=== PATIENT | female | born 1940 | race Caucasian/White ===

== ENCOUNTER 2017-04-17 15:04 | Outpatient (CLI) | payer MEDICARE, OTHER ==
--- NOTE | 2017-04-18 11:02 | XRAY Report ---
THREE VIEW RIGHT FOOT: 04/17/2017 CLINICAL INDICATION: Injury, pain. FINDINGS: AP, lateral, oblique views of the right foot demonstrate mild osteoarthritis. There is no evidence of acute fracture or dislocation. Plantar and posterior calcaneal spurring is present. IMPRESSION: OSTEOARTHRITIS. NO EVIDENCE OF FRACTURE. TD: 04/18/2017 11:01
== END 2017-04-17 15:05 | disposition home or self-care (01) ==
LOC: DI 15:04
PROVIDERS: ATTEND Podiatrist
DX: S99.921A Unspecified injury of right foot, initial encounter (principal); M19.071 Primary osteoarthritis, right ankle and foot

== ENCOUNTER 2018-03-29 09:15 | Emergency (ER) | payer MEDICARE, OTHER ==
--- NOTE | 2018-03-29 09:27 | ED Physician Documentation ---
PD HPI SYNCOPE - Stated complaint Stated Complaint: SYNCOPE/GLF - Chief complaint Chief Complaint: Trauma Hd/Nk - History obtained from History obtained from: Patient - History of Present Illness Witnessed: Unwitnessed Timing - onset: Last night Duration: Seconds Preceding symptoms: Light headed, Generalized weakness (she has been ill for couple weeks with cough and congestion, Dx with pneumonia and was on Zpack for 5 days with mod improvement, then seen again PMD several days ago and Rx Keflex. She says she is still having cough and tightness. Went to bathroom last night and felt lighheaded getting up off the toilet, felt faint, then awoke on the floor. Presumes short duration but does not know for sure. Got herself back up. Still feeling weak today, and has increased cough too.). No: Headache, Chest pain Associated symptoms: Dyspnea (with cough the past 2 weeks). No: Headache, Chest pain, Nausea / vomiting, Abdominal pain Contributing factors: Just stood up. No: Recent med change, Noxious stimulae Similar symptoms before: Has not had sx before Recently seen: Not recently seen Review of Systems Constitutional: denies: Fever, Chills, Myalgias Nose: denies: Rhinorrhea / runny nose, Congestion Throat: denies: Sore throat Cardiac: reports: Chest pain / pressure (anteriorly with cough). denies: Palpitations Respiratory: reports: Dyspnea, Cough, Wheezing GI: denies: Nausea, Vomiting, Diarrhea, Bloody / black stool Skin: denies: Rash, Lesions Musculoskeletal: denies: Extremity swelling Neurologic: reports: Generalized weakness, Syncope, Headache. denies: Focal wea kness, Numbness, Head injury PD PAST MEDICAL HISTORY - Present Medications Home Medications: Ambulatory Orders Medication Instructions Recorded Confirmed Albuterol Sulf [Ventolin Hfa 2 puffs INH Q4HR PRN #1 inhaler 03/29/18 Inhaler] Benzonatate [Tessalon Perle] 100 - 200 mg PO TID PRN #30 capsule 03/29/18 Cephalexin [Keflex] 500 mg PO DAILY 03/29/18 03/29/18 Dexamethasone [Decadron] 4 mg PO DAILY #5 tablet 03/29/18 Dextromethorphan Polistirex 30 mg PO DAILY 03/29/18 03/29/18 [Delsym] Losartan [Cozaar] 50 mg PO DAILY 03/29/18 03/29/18 amLODIPine [Norvasc] 5 mg PO DAILY 03/29/18 03/29/18 - Allergies Allergies/Adverse Reactions: Allergies Allergy/AdvReac Type Severity Reaction Status Date / Time codeine Allergy Hallucinati Verified 03/29/18 09:25 ons morphine Allergy Hallucinati Verified 03/29/18 09:25 ons PD ED PE NORMAL - Vitals Vital signs reviewed: Yes - General General: Alert and oriented X 3, No acute distress, Well developed/nourished - HEENT HEENT: Ears normal, Pharynx benign - Neck Neck: Supple, no meningeal sign, No adenopathy - Cardiac Cardiac: RRR, No murmur - Respiratory Respiratory: Clear bilaterally - Abdomen Abdomen: Soft, Non tender - Back Back: No CVA TTP, No spinal TTP - Derm Derm: Normal color, Warm and dry - Extremities Extremities: No deformity, No edema, No calf tenderness / cord - Neuro Neuro: Alert and oriented X 3, No motor deficit, Normal speech Eye Opening: Spontaneous Motor: Obeys Commands Verbal: Oriented GCS Score: 15 Results - Vitals Vitals: Vital Signs - 24 hr 03/29/18 03/29/18 03/29/18 09:22 10:57 11:12 Temperature 36.9 C Heart Rate 76 58 L Heart Rate [ 64 Sitting] Heart Rate [ 67 Standing] Heart Rate [ 62 Supine] Respiratory 18 16 Rate Blood Pressure 138/92 H Blood Pressure 137/64 H [Sitting] Blood Pressure 147/56 H [Standing] Blood Pressure 138/63 H [Supine] O2 Saturation 93 03/29/18 03/29/18 12:14 13:00 Temperature 36.8 C 36.8 C Heart Rate 70 66 Heart Rate [ Sitting] Heart Rate [ Standing] Heart Rate [ Supine] Respiratory 16 16 Rate Blood Pressure 123/58 L 117/57 L Blood Pressure [Sitting] Blood Pressure [Standing] Blood Pressure [Supine] O2 Saturation 94 95 Oxygen O2 Source Room air - EKG (time done) 09:38 Rate: Rate (enter#) (63) Rhythm: NSR [employer]: Normal Intervals: Normal MT QRS: Normal Ischemia: Normal ST segments. No: ST elevation c/w ischemia, ST depression - Labs Labs: Laboratory Tests 03/29/18 03/29/18 03/29/18 10:40 10:40 10:40 WBC 4.7 L RBC 4.10 L Hgb 12.4 Hct 36.6 L MCV 89.3 MCH 30.3 MCHC 33.9 RDW 14.8 Plt Count 205 MPV 9.3 Neut # (Auto) 3.8 Lymph # (Auto) 0.5 L [place] # (Auto) 0.4 Eos # (Auto) 0.1 Baso # (Auto) 0.0 Absolute Nucleated RBC 0.00 Nucleated RBC % 0.0 Sodium Potassium Chloride Carbon Dioxide Anion Gap BUN Creatinine Estimated GFR (MDRD) Glucose Lactic Acid 0.8 Calcium Magnesium Total Bilirubin AST ALT Alkaline Phosphatase Troponin I < 0.04 Total Protein Albumin Globulin Albumin/Globulin Ratio Lipase 03/29/18 10:40 WBC RBC Hgb Hct MCV MCH MCHC RDW Plt Count MPV Neut # (Auto) Lymph # (Auto) [place] # (Auto) Eos # (Auto) Baso # (Auto) Absolute Nucleated RBC Nucleated RBC % Sodium 133 L Potassium 3.7 Chloride 99 L Carbon Dioxide 26 Anion Gap 8.0 BUN 12 Creatinine 0.7 Estimated GFR (MDRD) 81 L Glucose 106 H Lactic Acid Calcium 8.7 Magnesium 2.5 Total Bilirubin 0.4 AST 26 ALT 22 Alkaline Phosphatase 59 Troponin I Total Protein 7.9 Albumin 3.9 Globulin 4.0 Albumin/Globulin Ratio 1.0 Lipase 22 - Rads (name of study) chest xray Radiology: Prelim report reviewed (no acute findings.), EMP read contemporaneously, See rad report Departure - Departure Disposition: 01 Home, Self Care Clinical Impression: Bronchitis, Postural syncope Condition: Stable Record reviewed to determine appropriate education?: Yes Instructions: ED Syncope Vasovagal Follow-Up: Moises Jacobs MD [Primary Care Provider] - Prescriptions: Albuterol Sulf [Ventolin Hfa Inhaler] 2 puffs INH Q4HR PRN #1 inhaler PRN Reason: Shortness Of Air/Wheezing Benzonatate [Tessalon Perle] 100 - 200 mg PO TID PRN #30 capsule PRN Reason: Cough Dexamethasone [Decadron] 4 mg PO DAILY #5 tablet Comments: Continue your current medications. Stay well-hydrated. Add albuterol inhaler 2 puffs 4 times a day for the next week or so to try to help with decreasing cough and improving breathing. Decadron steroid anti-inflammatory to decrease bronchial irritation and this should decrease the cough as well. Tessalon if needed for cough. Your chest x-ray was clear without any pneumonia. Your blood tests are good. Your fainting episode last night sounds like it was just a transient drop in blood pressure. Your blood pressure seems good here. Discharge Date/Time: 03/29/18 13:00
[2018-03-29] MEDS ORDERED: SODIUM CHLORIDE 0.9% 1,000 ML IV ONE (09:58)
[2018-03-29] MEDS ORDERED: ONDANSETRON 4 MG/2 ML VIAL IVP STA (09:58)
[2018-03-29] MEDS ORDERED: DEXAMETHASONE 10 MG/ML VIAL IVP STA (09:59)
[2018-03-29] MEDS ORDERED: KETOROLAC 15 MG/ML VIAL IVP STA (09:59)
[2018-03-29] MEDS ORDERED: ALBUTEROL NEB 2.5 MG/3 ML INH STA (09:59)
--- NOTE | 2018-03-29 10:28 | XRAY Report ---
Reason: cough and weakness Procedure Date: 03/29/2018 Accession Number: [id number] / [id number] Procedure: XR - Chest 2 View X-Ray CPT Code: 53160 FULL RESULT: EXAM: CHEST RADIOGRAPHY EXAM DATE: 03/29/2018 10:11 AM. CLINICAL HISTORY: Cough and weakness. Syncope and ground-level fall this morning. COMPARISON: None. TECHNIQUE: 2 views. FINDINGS: Lungs/Pleura: No focal opacities evident. No pleural effusion. No pneumothorax. Normal volumes. Mediastinum: Heart and mediastinal contours are unremarkable. Other: No acute osseous abnormality. IMPRESSION: No acute cardiopulmonary abnormality. RADIA
[2018-03-29 11:35] LABS: BASOPHILS % (AUTO) 0.5 %; EOSINOPHILS # (AUTO) 0.1 10^3/uL (0.0-0.7); EOSINOPHILS % (AUTO) 1.5 %; HGB - HEMOGLOBIN 12.4 g/dL (12.0-16.0); LYMPHOCYTES # (AUTO) 0.5 10^3/uL (1.5-3.5); LYMPHOCYTES % (AUTO) 9.8 %; MEAN CORPUSCULAR HEMOGLOBIN 30.3 pg (27.0-31.0); MEAN CORPUSCULAR HGB CONC 33.9 g/dL (32.0-36.0); MEAN CORPUSCULAR VOLUME 89.3 fL (81.0-99.0); MEAN PLATELET VOLUME 9.3 fL (7.9-10.8); MONOCYTES # (AUTO) 0.4 10^3/uL (0.0-1.0); MONOCYTES % (AUTO) 8.3 %; NEUTROPHILS # (AUTO) 3.8 10^3/uL (1.5-6.6); NEUTROPHILS % (AUTO) 79.9 %; PLT - PLATELET COUNT 205 10^3/uL (130-450); RED CELL DISTRIBUTION WIDTH 14.8 % (12.0-15.0); WHITE BLOOD COUNT 4.7 x10^3/uL (4.8-10.8)
[2018-03-29 11:43] LABS: ALBUMIN 3.9 g/dL (3.2-5.5); BILIRUBIN,TOTAL 0.4 mg/dL (0.2-1.0); CALCIUM 8.7 mg/dL (8.5-10.3); CREATININE 0.7 mg/dL (0.4-1.0); MAGNESIUM 2.5 mg/dL (1.7-2.8); TOTAL PROTEIN 7.9 g/dL (6.7-8.2)
[2018-03-29] MEDS ORDERED: ACETAMINOPHEN 500 MG TABLET PO STA (12:16)
[2018-03-29 13:02] VITALS: BP 117/57
== END 2018-03-29 13:00 | disposition home or self-care (01) ==
LOC: ED 09:15
DX: J40 Bronchitis, not specified as acute or chronic (principal); R55 Syncope and collapse
CPT/HCPCS: 36415; 71046; 80053; 83605; 83690; 83735; 84484; 85025; 93005; 94640; 96361; 96374; 96375; 99284; A9270

== ENCOUNTER 2018-04-22 10:09 | Outpatient (CLI) | payer MEDICARE, OTHER ==
--- NOTE | 2018-04-22 13:15 | XRAY Report ---
Reason: PAIN IN LEFT SHOULDER Procedure Date: 04/22/2018 Accession Number: [id number] / [id number] Procedure: XR - Shoulder 3 View LT CPT Code: FULL RESULT: EXAM: LEFT SHOULDER RADIOGRAPHY EXAM DATE: 04/22/2018 10:12 AM. CLINICAL HISTORY: PAIN IN LEFT SHOULDER. COMPARISON: None. TECHNIQUE: 3 views. FINDINGS: Bones: Normal. No fracture or bone lesion. Joints: The glenohumeral and acromioclavicular joints are normally located with mild AC joint degenerative changes. Soft tissues: There is a well rounded 1.2 cm calcific density posterior to the scapula seen on the Y-view and posterior to the proximal humeral diaphysis on the AP view. Possibly heterotopic calcifications, overall a nonspecific finding. IMPRESSION: No fracture or dislocation. Well-rounded calcific density projecting over the soft tissues as described, possibly heterotopic calcifications. RADIA
== END 2018-04-22 10:10 | disposition home or self-care (01) ==
LOC: DI 10:09
PROVIDERS: ATTEND Family Medicine
DX: M25.512 Pain in left shoulder (principal)

== ENCOUNTER 2020-07-17 | Outpatient (CLI) | payer MEDICARE, OTHER | END 2020-07-17 03:00 | disposition critical access hospital (66) | CPT/HCPCS: A0425; A0429 ==

== ENCOUNTER 2020-07-17 03:24 | Observation (INO) | payer MEDICARE, OTHER ==
[2020-07-17] MEDS ORDERED: ONDANSETRON ODT 4 MG TABLET ONE (03:30)
--- NOTE | 2020-07-17 03:44 | ED Physician Documentation ---
PD HPI SYNCOPE - Stated complaint Stated Complaint: GLF - History obtained from History obtained from: Patient - History of Present Illness Witnessed: Unwitnessed Timing - onset: Enter time (0200) Duration: Unknown Preceding symptoms: Vision changes, Light headed, Generalized weakness Contributing factors: Decreased PO intake, Just stood up, Other (2nd dose of moderna today) Injury occurred: Fell, Head injury Similar symptoms before: Has not had sx before Recently seen: Other - Additional information Additional information: 80-year-old female who was well earlier in the day had her second Moderna shot at 10:00 in the morning. She was well during the day and well when she went to bed and she awoke in the night feeling warm and having to throw the covers off of her self and she got up to go to the bathroom when and went to the bathroom when she stood up from going to the bathroom she fainted and she fell and struck the back of her head. She does not know whether she was unconscious for any period of time she has some blood on the back of her head and the ambulance was summoned to her home the patient has some nausea and vomiting now. Review of Systems Constitutional: denies: Fever Eyes: denies: Decreased vision Ears: denies: Ear pain Nose: denies: Congestion Throat: denies: Sore throat Cardiac: denies: Chest pain / pressure, Palpitations Respiratory: denies: Dyspnea, Cough GI: reports: Nausea, Vomiting. denies: Abdominal Pain : denies: Dysuria, Frequency Skin: denies: Rash Musculoskeletal: reports: Neck pain. denies: Back pain, Extremity pain Neurologic: reports: Syncope, Headache, Head injury, LOC. denies: Generalized weakness, Focal weakness, Numbness, Seizure, Altered mental status PD PAST MEDICAL HISTORY - Past Medical History Cardiovascular: Hypertension, High cholesterol Respiratory: Pneumonia GI: Chronic constipation Psych: Anxiety - Past Surgical History General: Cholecystectomy /[employer]: Hysterectomy - Present Medications Home Medications: Ambulatory Orders Medication Instructions Recorded Confirmed Albuterol Sulf [Ventolin Hfa 2 puffs INH Q4HR PRN #1 inhaler 03/29/18 Inhaler] Benzonatate [Tessalon Perle] 100 - 200 mg PO TID PRN #30 capsule 03/29/18 Dextromethorphan Polistirex 30 mg PO DAILY 03/29/18 03/29/18 [Delsym] Losartan [Cozaar] 50 mg PO DAILY 03/29/18 03/29/18 amLODIPine [Norvasc] 5 mg PO DAILY 03/29/18 03/29/18 cephALEXin [Keflex] 500 mg PO DAILY 03/29/18 03/29/18 dexAMETHasone [Decadron] 4 mg PO DAILY #5 tablet 03/29/18 Meclizine HCl [Antivert] 1 tablet PO Q6H PRN #30 tab 07/17/20 Ondansetron Odt [Zofran] 4 mg TL Q6H PRN #10 tablet 07/17/20 - Allergies Allergies/Adverse Reactions: Allergies Allergy/AdvReac Type Severity Reaction Status Date / Time codeine Allergy Hallucinati Verified 07/17/20 03:56 ons morphine Allergy Hallucinati Verified 07/17/20 03:56 ons - Social History Does the pt smoke?: No Smoking Status: Never smoker Does the pt drink ETOH?: No Does the pt have substance abuse?: No PD ED PE NORMAL - Vitals Vital signs reviewed: Yes (Hypertensive with wide pulse pressure) - General General: Alert and oriented X 3, Well developed/nourished - HEENT HEENT: PERRL, EOMI, Other (There is a contusion to the occiput with bleeding and no laceration. There is a Wenn on the occiput inferior left. ) - Neck Neck: Supple, no meningeal sign, Other (mild midline tenderness ) - Cardiac Cardiac: RRR, No murmur - Respiratory Respiratory: No respiratory distress, Clear bilaterally - Abdomen Abdomen: Normal bowel sounds, Soft, Non tender, Non distended, No organomegaly - Back Back: No CVA TTP, No spinal TTP - Derm Derm: Normal color, Warm and dry, No rash - Extremities Extremities: No deformity, No edema - Neuro Neuro: Alert and oriented X 3, barrel raiser 2-12 intact, No motor deficit, No sensory deficit, Normal speech Eye Opening: Spontaneous Motor: Obeys Commands Verbal: Oriented GCS Score: 15 - Psych Psych: Normal mood, Normal affect Results - Vitals Vitals: Vital Signs - 24 hr 07/17/20 07/17/20 07/17/20 03:25 04:14 04:58 Temperature 36.2 C L 36.7 C Heart Rate 73 78 84 Respiratory 20 18 16 Rate Blood Pressure 141/64 H 138/72 H 146/67 H O2 Saturation 98 99 99 07/17/20 07/17/20 05:51 06:02 Temperature 36.8 C Heart Rate 86 85 Respiratory 15 14 Rate Blood Pressure 134/66 H 128/67 O2 Saturation 97 99 Oxygen O2 Source Room air - EKG (time done) 0340 Rate: Rate (enter#) (74) [place]: LAD Ischemia: Non specific changes Computer interpretation: Agree with computer - Labs Labs: Laboratory Tests 07/17/20 07/17/20 07/17/20 03:49 03:49 03:49 WBC 8.9 RBC 4.22 Hgb 12.5 Hct 38.4 MCV 91.0 MCH 29.6 MCHC 32.6 RDW 14.6 Plt Count 225 MPV 9.7 Neut # (Auto) 7.0 H Lymph # (Auto) 1.1 L [place] # (Auto) 0.5 Eos # (Auto) 0.1 Baso # (Auto) 0.0 Absolute Nucleated RBC 0.00 Nucleated RBC % 0.0 Sodium 132 L Potassium 3.6 Chloride 99 L Carbon Dioxide 24 Anion Gap 9.0 BUN 13 Creatinine 0.7 Estimated GFR (MDRD) 80 L Glucose 129 H Calcium 8.7 Total Bilirubin 0.4 AST 26 ALT 24 Alkaline Phosphatase 58 Troponin I High Sens 5.7 Total Protein 7.2 Albumin 4.1 Globulin 3.1 Albumin/Globulin Ratio 1.3 Lipase 28 Urine Color Urine Clarity Urine pH Ur Specific [place] Urine Protein Urine Glucose (UA) Urine Ketones Urine Occult Blood Urine Nitrite Urine Bilirubin Urine Urobilinogen Ur Leukocyte Esterase Urine RBC Urine WBC Ur Squamous Epith Cells Urine Bacteria Ur Microscopic Review Urine Culture Comments 07/17/20 05:45 WBC RBC Hgb Hct MCV MCH MCHC RDW Plt Count MPV Neut # (Auto) Lymph # (Auto) [place] # (Auto) Eos # (Auto) Baso # (Auto) Absolute Nucleated RBC Nucleated RBC % Sodium Potassium Chloride Carbon Dioxide Anion Gap BUN Creatinine Estimated GFR (MDRD) Glucose Calcium Total Bilirubin AST ALT Alkaline Phosphatase Troponin I High Sens Total Protein Albumin Globulin Albumin/Globulin Ratio Lipase Urine Color YELLOW Urine Clarity CLEAR Urine pH 8.0 H Ur Specific [place] 1.020 Urine Protein NEGATIVE Urine Glucose (UA) NEGATIVE Urine Ketones NEGATIVE Urine Occult Blood NEGATIVE Urine Nitrite NEGATIVE Urine Bilirubin NEGATIVE Urine Urobilinogen 0.2 (NORMAL) Ur Leukocyte Esterase TRACE H Urine RBC None Seen Urine WBC 6-10 H Ur Squamous Epith Cells NONE SEEN Urine Bacteria Rare Ur Microscopic Review INDICATED Urine Culture Comments INDICATED - Rads (name of study) CT head Radiology: Prelim report reviewed (Impression: 1. No CT evidence of acute intracranial abnormality. Cerebral volume loss, intracranial atherosclerotic disease and sequela of chronic small vessel ischemic disease.), EMP read indepedently, See rad report Cervical spine Radiology: Prelim report reviewed (Impression: 1. Negative CT cervical spine for acute process.) Procedures - IVC sono (time) 0420 Bedside IVC sono: IVC measures (cm) (0.87), Dehydration (est 2 liter deficit) PD MEDICAL DECISION MAKING - ED course Complexity details: reviewed results, re-evaluated patient, considered differential, d/w patient, d/w family ED course: 80-year-old female with a syncopal episode resulting in a head injury with resultant vomiting.The patient is found to be dehydrated and intravenous saline is begun she is given some Zofran for the nausea. CT images are without evidence of intracranial hemorrhage. The patient is dehydrated enough to require 2 L of nasal normal saline and she has some dizziness with nystagmus and is administered meclizine as well. Departure - Departure Clinical Impression: Postural syncope, Dehydration Concussion Qualifiers: Encounter type: initial encounter Loss of consciousness presence/duration: with LOC of 30 min or less Qualified Code(s): S06.0X1A - Concussion with loss of consciousness of 30 minutes or less, initial encounter Scalp contusion Qualifiers: Encounter type: initial encounter Qualified Code(s): S00.03XA - Contusion of scalp, initial encounter Condition: Stable Instructions: ED Dehydration, ED Head Injury Closed, ED Syncope Vasovagal, ED Vertigo Unspecified Follow-Up: Moises Jacobs MD [Primary Care Provider] - Prescriptions: Meclizine HCl [Antivert] 1 tablet PO Q6H PRN #30 tab PRN Reason: Vertigo Ondansetron Odt [Zofran] 4 mg TL Q6H PRN #10 tablet PRN Reason: Nausea / Vomiting
[2020-07-17 03:55] LABS: BASOPHILS % (AUTO) 0.5 %; EOSINOPHILS # (AUTO) 0.1 10^3/uL (0.0-0.7); EOSINOPHILS % (AUTO) 1.5 %; HCT - HEMATOCRIT 38.4 % (37.0-47.0); HGB - HEMOGLOBIN 12.5 g/dL (12.0-16.0); LYMPHOCYTES # (AUTO) 1.1 10^3/uL (1.5-3.5); LYMPHOCYTES % (AUTO) 12.9 %; MEAN CORPUSCULAR HEMOGLOBIN 29.6 pg (27.0-31.0); MEAN CORPUSCULAR HGB CONC 32.6 g/dL (32.0-36.0); MEAN PLATELET VOLUME 9.7 fL (7.9-10.8); MONOCYTES # (AUTO) 0.5 10^3/uL (0.0-1.0); MONOCYTES % (AUTO) 5.9 %; PLT - PLATELET COUNT 225 10^3/uL (130-450); RED BLOOD COUNT 4.22 10^6/uL (4.20-5.40); RED CELL DISTRIBUTION WIDTH 14.6 % (12.0-15.0); WHITE BLOOD COUNT 8.9 x10^3/uL (4.8-10.8)
[2020-07-17] MEDS ORDERED: ONDANSETRON ODT 4 MG TABLET TL STA (04:03)
[2020-07-17 04:06] LABS: ALBUMIN 4.1 g/dL (3.2-5.5); ALBUMIN/GLOBULIN RATIO 1.3 (1.0-2.2); BILIRUBIN,TOTAL 0.4 mg/dL (0.2-1.0); CALCIUM 8.7 mg/dL (8.5-10.3); CREATININE 0.7 mg/dL (0.4-1.0); POTASSIUM 3.6 mmol/L (3.5-5.0); TOTAL PROTEIN 7.2 g/dL (6.7-8.2)
[2020-07-17] MEDS ORDERED: ACETAMINOPHEN 325 MG TABLET PO STA (04:33)
[2020-07-17] MEDS ORDERED: SODIUM CHLORIDE 0.9% 1,000 ML IV STA ×3 (04:35→08:23)
[2020-07-17 05:54] LABS: BILIRUBIN,URINE NEGATIVE (NEGATIVE); CLARITY,URINE CLEAR (CLEAR); GLUCOSE, URINE (UA) NEGATIVE (NEGATIVE); KETONES,URINE (UA) NEGATIVE (NEGATIVE); LEUKOCYTE ESTERASE, URINE TRACE (NEGATIVE); NITRITE,URINE NEGATIVE (NEGATIVE); OCCULT BLOOD,URINE NEGATIVE (NEGATIVE); PROTEIN,URINE NEGATIVE (NEGATIVE); UROBILINOGEN,URINE 0.2 (NORMAL) E.U./dL (NORMAL)
[2020-07-17 06:01] LABS: BACTERIA,URINE Rare /HPF (None Seen); RBC,URINE None Seen /HPF (0-5); SQUAMOUS EPITHELIAL CELL,UR NONE SEEN (<= Few)
[2020-07-17] MEDS ORDERED: MECLIZINE 12.5 MG TABLET PO STA ×2 (06:06→09:29)
--- NOTE | 2020-07-17 07:10 | CT Report ---
PROCEDURE: HEAD WO INDICATIONS: polytrauma, critical TECHNIQUE: Noncontrast 4.5 mm thick angled axial sections acquired from the foramen magnum to the vertex. For r adiation dose reduction, the following was used: automated exposure control, adjustment of mA and/or kV according to patient size. COMPARISON: None FINDINGS: Image quality: Excellent. CSF spaces: Basal cisterns are patent. No extra-axial fluid collections. The ventricles are symmet prakash in size and shape. Brain: No intracranial bleeds or masses. There is cerebral volume loss for age, with resultant vent ricular and sulcal prominence. There are periventricular and deep white matter chronic small vessel ischemic changes. There is intracranial internal carotid artery and vertebral artery atherosclerosis . Skull and face: Calvarium and visualized facial bones appear intact, without suspicious lesions. Sinuses: Visualized sinuses and mastoids are clear. IMPRESSION: No acute intracranial disease process. Reviewed by: Pauline Lombardo MD, PhD on 07/17/2020 7:09 AM PDT Approved by: Pauline Lombardo MD, PhD on 07/17/2020 7:09 AM PDT Station ID: [id number]
--- NOTE | 2020-07-17 08:16 | CT Report ---
PROCEDURE: CERVICAL SPINE WO INDICATIONS: head injury neck pain TECHNIQUE: Noncontrast 3 mm thick sections acquired from the skull base to the T4 level. Sagittal and coronal r eformats were then constructed. For radiation dose reduction, the following was used: automated exp osure control, adjustment of mA and/or kV according to patient size. COMPARISON: None. FINDINGS: Image quality: Excellent. Bones: No fractures or dislocations. Degenerative endplate changes throughout cervical spine more pr ominent at C5-6 and C6-7 levels are seen. Minimal anterolisthesis at C2-3, C3-4 and C4-5 levels are n oted. Bilateral facet hypertrophic changes and broad-based degenerative disc bulge at C3-4 through C6 -7 levels are seen. Mild to moderate central canal stenosis at C6-7 level is noted. Visualized superi or ribs are intact. Soft tissues: Prevertebral soft tissues are normal in thickness. No paravertebral hematomas. No ap ical pneumothoraces. IMPRESSION: 1. No acute cervical spine fracture or dislocation. 2. Degenerative disc disease throughout cervical spine as above. No discrepancy preliminary reading. Reviewed by: Beck Wagner MD on 07/17/2020 8:15 AM PDT Approved by: Beck Wagner MD on 07/17/2020 8:15 AM PDT Station ID: [id number]
[2020-07-17] MEDS ORDERED: KETOROLAC 15 MG/ML VIAL IVP STA (08:23)
[2020-07-17] MEDS ORDERED: diazePAM INJ 5 MG/ML SYRINGE IVP STA (08:23)
--- NOTE | 2020-07-17 08:51 | ED Physician Documentation ---
ED Addendum - Addendum Addendum: Patient seen after change of shift. She had had her vaccination Materna Covid vaccine yesterday and awoke during the night with feeling feverish and chills generally weak. She got up to go the bathroom felt lightheaded and fainted. She struck her head and has headache and dizziness now as well. This has been on resolved enough with IV fluids and medications. She attempted bedside commode with significant unsteadiness dizziness and nausea. I feel she needs further care in the hospital more than the ER timeframe for her side effects to the vaccine and also concussive symptoms. I talked with the hospitalist who concurred. Disposition observation status in the hospital Diagnoses: 1. Side effects to Covid vaccination 2. Lightheadedness with syncope 3. Postconcussive symptoms 4. Significant vertigo and nausea. 07/17/20 08:49
[2020-07-17] MEDS ORDERED: ONDANSETRON ODT 4 MG TABLET TL PRN (09:13)
[2020-07-17] MEDS ORDERED: PROCHLORPERAZINE 10 MG/2 ML VIAL IVP PRN (09:13)
[2020-07-17] MEDS ORDERED: ACETAMINOPHEN 325 MG TABLET PO PRN (09:13)
[2020-07-17] MEDS ORDERED: SODIUM CHLORIDE FLUSH 0.9% 10 ML SYRINGE IVP PRN (09:13)
--- NOTE | 2020-07-17 09:20 | HISTORY & PHYSICAL EXAMINATION ---
Chief Complaint - Chief Complaint Chief Complaint: Syncope, Concussion w/ vertigo History of Present Illness - Admitted From Admitted From:: ED - History Obtained From History obtained from: ED provider and patient - History of Present Illness HPI Comment/Other: This is an 80-year-old white female with history of hypertension on BP treatment who had her second Covid shot yesterday. When she went to bed she awoke "not feeling well with alternating chills and feeling hot". She got up to go to the bathroom in the middle of the night and felt lightheaded. She then had syncope, it was unwitnessed, she does not know how long she was out. She hit her posterior head. Her grandaughter lives below her and heard her moaning, went to check on her and an ambulance was called. In the ER she complained of a headache, dizziness, nausea and had nystagmus on exam. The patient is being placed in Observation status to evaluate syncope, treat her "soft" blood pressure and also manage her concussion symptoms of headache, and dizziness. 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 She does not smoke, uses no alcohol. - Substance History Use: Uses substance without health or social issues: NONE - POLST Patient has POLST: Yes POLST Status: DNR (Her PCP, Dr. Jacobs has the POLST form) Meds/Allgy - Home Medications Home Medications: Ambulatory Orders Medication Instructions Recorded Confirmed amLODIPine [Norvasc] 5 mg PO DAILY 03/29/18 07/17/20 Losartan Potassium 25 mg PO DAILY 07/17/20 07/17/20 Meclizine HCl [Antivert] 1 tablet PO Q6H PRN #30 tab 07/17/20 - Allergies Allergies/Adverse Reactions: Allergies Allergy/AdvReac Type Severity Reaction Status Date / Time codeine Allergy Hallucinati Verified 07/17/20 03:56 ons morphine Allergy Hallucinati Verified 07/17/20 03:56 ons Review of Systems - Constitutional Constitutional: reports: Chills, Malaise - Cardiovascular Cariovascular: reports: Lightheadedness, Other (Patient had syncope in 2011 following GB surgery, was admitted and no cause was found other than reaction to post-op pain) - Neurological Neurological: reports: Headache, Dizziness - All Other Systems All Other Systems: reports: Reviewed and negative Exam - Vital Signs Vital Signs: Vital Signs x48h Temp Pulse Resp BP Pulse Ox 07/17/20 09:12 84 16 116/61 100 07/17/20 08:53 36.1 C L 84 14 115/80 99 07/17/20 07:23 91 17 115/66 96 07/17/20 06:38 36.7 C 87 13 121/66 97 07/17/20 06:02 85 14 128/67 99 07/17/20 05:51 36.8 C 86 15 134/66 H 97 07/17/20 04:58 36.7 C 84 16 146/67 H 99 07/17/20 04:14 78 18 138/72 H 99 07/17/20 03:25 36.2 C L 73 20 141/64 H 98 - Physical Exam General Appearance: positive: No acute distress, Alert Eyes Bilateral: positive: Normal inspection, EOMI ENT: positive: ENT inspection nml, No signs of dehydration Neck: positive: Nml inspection, No JVD Respiratory: positive: No respiratory distress, Breath sounds nml Cardiovascular: positive: Regular rate & rhythm, No murmur Abdomen: positive: Non-tender, No distention Skin: positive: No rash, Warm, Dry Extremities: positive: Non-tender, No pedal edema Neurologic/Psychiatric: positive: Oriented x3 (Non-focal exam) Conclusion/Plan - Problem List (1) Syncope Conclusion/Plan: This is likely related to low-grade fever after her vaccination, causing dehydration and low blood pressure. Start IV fluids. Check orthostatic vital signs. Monitor on telemetry. Obtain Echo to evaluate her heart. Hold blood pressure meds since current blood pressure is "soft" (2) Dehydration Conclusion/Plan: As in #1 above Follow BMP daily (3) Hyponatremia Conclusion/Plan: Suspect hypovolemic hyponatremia. Fluids containing saline have been ordered. Follow BMP daily (4) Concussion Conclusion/Plan: As per Hx of syncope, fall onto head and subsequent headache Qualifiers: Encounter type: initial encounter Loss of consciousness presence/duration: with LOC of 30 min or less Qualified Code(s): S06.0X1A - Concussion with loss of consciousness of 30 minutes or less, initial encounter (5) Post-concussion vertigo Conclusion/Plan: Antiemetics IV as needed. Meclizine for vertigo as needed. Patient would like to stay in a dark room for the headache as well (6) Vaccination side effects Conclusion/Plan: This is likely related to low-grade fever after her vaccination, causing dehydration and low blood pressure. Qualifiers: Encounter type: initial encounter Qualified Code(s): T50.Z95A - Adverse effect of other vaccines and biological substances, initial encounter (7) Abnormal EKG Conclusion/Plan: The EKG shows early R/S transition and RSR', both suggest right ventricular overload. The EKG is unchanged from her previous which was in 2019. Echo is ordered to evaluate the syncope and abnormal EKG. (8) Scalp contusion Conclusion/Plan: As per ED provider. No laceration was present to need sutures. Pain meds for her headache have been ordered Qualifiers: Encounter type: initial encounter Qualified Code(s): S00.03XA - Contusion of scalp, initial encounter (9) Hx of essential hypertension Conclusion/Plan: Will hold her blood pressure meds, check orthostatic vital signs, resume blood pressure medications when needed. - Lab Results Fish Bones: 07/17/20 03:49 07/17/20 03:49
[2020-07-17 10:12] LABS: B. PARAPERTUSSIS- RESP PCR PAN NOT DETECTED; B. PERTUSSIS- RESP PCR PANEL NOT DETECTED; C. PNEUMONIAE- RESP PCR PANEL NOT DETECTED; CORONAVIRUS 229E-RESP PCR NOT DETECTED; CORONAVIRUS HKU1-RESP PCR NOT DETECTED; CORONAVIRUS NL63-RESP PCR NOT DETECTED; CORONAVIRUS OC43-RESP PCR NOT DETECTED; HUMAN METAPNEUMOVIRUS NOT DETECTED; INFLUENZA A- RESP PCR PANEL NOT DETECTED; INFLUENZA B - RESP PCR PANEL NOT DETECTED; M. PNEUMONIAE- RESP PCR PANEL NOT DETECTED; PARAINFLUENZA VIRUS 1 NOT DETECTED; PARAINFLUENZA VIRUS 2 NOT DETECTED; PARAINFLUENZA VIRUS 3 NOT DETECTED; PARAINFLUENZA VIRUS 4 NOT DETECTED; RHINOVIRUS/ENTEROVIRUS NOT DETECTED; RSV- RESP PCR PANEL NOT DETECTED; SARS-CoV-2 -RESP PCR PANEL NOT DETECTED
[2020-07-17] MEDS: DEXTROSE 5%-0.9% NACL 1,000 ML IV SCH ×2 (11:07→16:07)
[2020-07-17] MEDS: SODIUM CHLORIDE FLUSH 0.9% 10 ML SYRINGE IVP SCH (16:08)
[2020-07-17] MEDS: KETOROLAC 30 MG/ML VIAL IVP PRN (16:15)
[2020-07-18] MEDS: SODIUM CHLORIDE FLUSH 0.9% 10 ML SYRINGE IVP SCH ×2 (00:15→09:13)
[2020-07-18] MEDS: KETOROLAC 30 MG/ML VIAL IVP PRN ×2 (00:18→13:53)
[2020-07-18] MEDS: DEXTROSE 5%-0.9% NACL 1,000 ML IV SCH (02:03)
[2020-07-18 07:53] LABS: BASOPHILS % (AUTO) 0.3 %; EOSINOPHILS # (AUTO) 0.3 10^3/uL (0.0-0.7); EOSINOPHILS % (AUTO) 3.9 %; HCT - HEMATOCRIT 35.7 % (37.0-47.0); HGB - HEMOGLOBIN 11.8 g/dL (12.0-16.0); LYMPHOCYTES # (AUTO) 1.5 10^3/uL (1.5-3.5); LYMPHOCYTES % (AUTO) 23.4 %; MEAN CORPUSCULAR HEMOGLOBIN 30.4 pg (27.0-31.0); MEAN CORPUSCULAR HGB CONC 33.1 g/dL (32.0-36.0); MEAN PLATELET VOLUME 9.2 fL (7.9-10.8); MONOCYTES # (AUTO) 0.5 10^3/uL (0.0-1.0); MONOCYTES % (AUTO) 8.4 %; NEUTROPHILS # (AUTO) 4.1 10^3/uL (1.5-6.6); NEUTROPHILS % (AUTO) 63.8 %; PLT - PLATELET COUNT 184 10^3/uL (130-450); RED BLOOD COUNT 3.88 10^6/uL (4.20-5.40); RED CELL DISTRIBUTION WIDTH 14.8 % (12.0-15.0); WHITE BLOOD COUNT 6.5 x10^3/uL (4.8-10.8)
[2020-07-18 08:03] LABS: CALCIUM 7.8 mg/dL (8.5-10.3); CREATININE 0.6 mg/dL (0.4-1.0); POTASSIUM 3.7 mmol/L (3.5-5.0)
[2020-07-18] MEDS ORDERED: MECLIZINE 12.5 MG TABLET PO PRN (08:30)
[2020-07-18] MEDS ORDERED: MECLIZINE 12.5 MG TABLET PO ONE (09:00)
--- NOTE | 2020-07-18 15:09 | Discharge Plan ---
Discharge Plan Problem Reviewed?: Yes Disposition: Home, Self Care Condition: Stable Prescriptions: Meclizine HCl [Antivert] 1 tablet PO Q6H PRN #30 tab PRN Reason: Vertigo Diet: Regular Activity Restrictions: Activity as Tolerated Shower Restrictions: No (fall precaution) Instruction Topics: ED Dehydration, ED Head Injury Closed, ED Syncope Vasovagal, ED Vertigo Unspecified, Meclizine tablets or capsules Health Concerns: vertigo/syncope Plan of Treatment: you walked with PT and your symptoms has significantly improved. ER provider already prescribed Meclizine for you as needed for vertigo. You may keep hydration at home, slowly standup and safely walk at home. Your heart ECHO study was unremarkable and in the normal arrange. Care Goals: stabilization and improvement of your medical conditions Assessment: discussed the care plan with you, answered your questions, and you understood. Additional Instructions or Follow Up instructions: You may followup with your PCP in one to two weeks. Should your symptoms return or worsen, you may present ER or call 911 for help. No Smoking: If you smoke, Please STOP! Call for help. Follow-up with: Moises Jacobs MD [Primary Care Provider] -
--- NOTE | 2020-07-18 15:20 | DISCHARGE SUMMARY ---
Discharge Summary Admit Date: 07/17/20 Discharge Date: 07/18/20 Discharging Provider: Jayesh Miles Primary Care Provider: Moises Masters Condition at Discharge: Stable Discharge Disposition: 01 Home, Self Care Discharge Facility Name: home - DIAGNOSES Discharge Diagnoses with Status of Each Condition: (1) Syncope pt has unremarkable ECHO study, EKG is unchanged as her previous. pt's orthostatic hypotension was resolved after hydration for pt. pt tolerated to walk with PT without distress. It is likely caused by her dehydration plus side effect of Covid 19 vaccines. (2) Dehydration resolved (3) Hyponatremia resolved (4) Concussion stable, CT of head and neck were unremarkable. (5) Post-concussion vertigo stable and controlled. pt tolerated to walk with PT without distress. pt is prescribed Meclizine PRN by ER provider. (6) Vaccination side effects stable and resolved (7) Abnormal EKG stable, as her 2019's (8) Scalp contusion stable (9) Hx of essential hypertension stable. - HPI History of Present Illness: refer from Dr. Rocio Damico's HPI on 07/17/20 This is an 80-year-old white female with history of hypertension on BP treatment who had her second Covid shot yesterday. When she went to bed she awoke "not feeling well with alternating chills and feeling hot". She got up to go to the bathroom in the middle of the night and felt lightheaded. She then had syncope, it was unwitnessed, she does not know how long she was out. She hit her posterior head. Her grandaughter lives below her and heard her moaning, went to check on her and an ambulance was called. In the ER she complained of a headache, dizziness, nausea and had nystagmus on exam. The patient is being placed in Observation status to evaluate syncope, treat her "soft" blood pressure and also manage her concussion symptoms of headache, and dizziness. - HOSPITAL COURSE Hospital Course: pt was admitted for unwitnessed syncope. after pt had IV hydration, pt's dizziness was great improved. pt walked with PT without distress. pt's CT of head and neck were unremarkable. ECHO study was unremarkable. pt is prescribed Meclizine PRN. pt's orthostatic hypotension was controlled. Patient was discharged in hemodynamic condition. - ALLERGIES Allergies/Adverse Reactions: Allergies Allergy/AdvReac Type Severity Reaction Status Date / Time codeine Allergy Hallucinati Verified 07/17/20 03:56 ons morphine Allergy Hallucinati Verified 07/17/20 03:56 ons - MEDICATIONS Home Medications: Ambulatory Orders Medication Instructions Recorded Confirmed amLODIPine [Norvasc] 5 mg PO DAILY 03/29/18 07/17/20 Losartan Potassium 25 mg PO DAILY 07/17/20 07/17/20 Meclizine HCl [Antivert] 1 tablet PO Q6H PRN #30 tab 07/17/20 - PHYSICAL EXAM AT DISCHARGE General Appearance: positive: No acute distress, Alert. negative: Lethargic Eyes Bilateral: positive: Normal inspection, PERRL, No lid inflammation ENT: positive: ENT inspection nml, No signs of dehydration. negative: Purulent nasal drainage Neck: positive: Nml inspection, Trachea midline. negative: Thyromegaly, Tracheal deviation Respiratory: positive: Chest non-tender, No respiratory distress, Breath sounds nml. negative: Wheezes, Rales, Rhonchi Cardiovascular: positive: Regular rate & rhythm, No murmur. negative: Tachycardia, Bradycardia, Systolic murmur, Diastolic murmur Peripheral Pulses: positive: 2+ Abdomen: positive: Non-tender, Nml bowel sounds, No distention. negative: Tenderness Back: positive: Nml inspection Skin: positive: Color nml, Warm, Dry. negative: Cyanosis, Diaphoresis Extremities: positive: Non-tender, Full ROM, Nml appearance. negative: Calf tenderness Neurologic/Psychiatric: positive: Oriented x3, Motor nml, Sensation nml, Mood/affect nml. negative: Weakness, Sensory loss, Facial droop, Slurred/abnml speech, Depressed mood/affect - LABS Result Diagrams: 07/18/20 07:48 07/18/20 07:48 - FOLLOW UP Follow Up: you walked with PT and your symptoms has significantly improved. ER provider already prescribed Meclizine for you as needed for vertigo. You may keep hydration at home, slowly standup and safely walk at home. Your heart ECHO study was unremarkable and in the normal arrange. You may followup with your PCP in one to two weeks. Should your symptoms return or worsen, you may present ER or call 911 for help. - TIME SPENT Time Spent in Discharge (Minutes): 30
[2020-07-18 15:51] VITALS: BP 121/49
== END 2020-07-18 16:10 | disposition home or self-care (01) ==
LOC: EDUNIT# → ED 03:24 → MS2 09:11
PROVIDERS: ADMIT Internal Medicine; ATTEND Nurse Practitioner Gerontology
DX: I95.1 Orthostatic hypotension (principal); R50.9 Fever, unspecified; E86.0 Dehydration; T50.B95A Adverse effect of other viral vaccines, initial encounter; S06.0X1A Concussion with loss of consciousness of 30 minutes or less, initial encounter; S00.03XA Contusion of scalp, initial encounter; R42 Dizziness and giddiness; I10 Essential (primary) hypertension; G44.309 Post-traumatic headache, unspecified, not intractable; E87.1 Hypo-osmolality and hyponatremia; W18.30XA Fall on same level, unspecified, initial encounter; Y92.002 Bathroom of unspecified non-institutional (private) residence as the place of occurrence of the external cause; Z20.822 Contact with and (suspected) exposure to COVID-19; Z79.899 Other long term (current) drug therapy; R94.31 Abnormal electrocardiogram [ECG] [EKG]
CPT/HCPCS: 36415; 70450; 72125; 80048; 80053; 81001; 83690; 84484; 85025; 87086; 87631; 93005; 93306; 96361; 96374; 96375; 96376; 97162; 97165; 99284; 99285; A9270; G0378; Q0162; 0202U; 81003

== ENCOUNTER 2021-05-13 15:29 | Outpatient (CLI) | payer MEDICARE, OTHER | END 2021-05-13 15:30 | disposition critical access hospital (66) | LOC: EMS 15:29 | DX: I95.9 Hypotension, unspecified (principal) | CPT/HCPCS: A0425; A0429 ==

== ENCOUNTER 2021-05-13 15:55 | Emergency (ER) | payer MEDICARE, OTHER ==
--- NOTE | 2021-05-13 16:04 | ED Physician Documentation ---
History of Present Illness - Stated complaint Stated Complaint: HIGH BP - History obtained from History obtained from: Patient, EMS - History of Present Illness Timing: Today Pain level max: 0 Pain level now: 0 - Additonal information Additional information: Patient is an 81-year-old female who presents to the emergency department asymptomatic hypertension. She states her blood pressure has been ranging between 130 and 170 over the past few weeks. She states that her doctor told her if it went back up towards 170 to call 911 and be seen in the emergency department. She has been asymptomatic. No headache. No vision changes, no chest pain, no shortness of breath. No numbness or tingling. No focal neurological deficits. Nothing makes it better or worse. Review of Systems Ten Systems: 10 systems reviewed and negative Constitutional: denies: Fever, Chills Ears: denies: Ear pain Nose: denies: Rhinorrhea / runny nose, Congestion Throat: denies: Sore throat Cardiac: denies: Chest pain / pressure, Palpitations Respiratory: denies: Dyspnea, Cough GI: denies: Abdominal Pain, Nausea, Vomiting, Diarrhea Skin: denies: Rash Musculoskeletal: denies: Neck pain, Back pain Neurologic: denies: Focal weakness, Numbness, Seizure, Confused, Headache, Head injury PD PAST MEDICAL HISTORY - Past Medical History Cardiovascular: Hypertension, High cholesterol Respiratory: Pneumonia Neuro: Head injury GI: Chronic constipation Psych: Anxiety - Past Surgical History 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 - Present Medications Home Medications: Ambulatory Orders Medication Instructions Recorded Confirmed amLODIPine [Norvasc] 5 mg PO DAILY 03/29/18 07/17/20 Losartan Potassium 25 mg PO DAILY 07/17/20 07/17/20 Meclizine HCl [Antivert] 1 tablet PO Q6H PRN #30 tab 07/17/20 - Allergies Allergies/Adverse Reactions: Allergies Allergy/AdvReac Type Severity Reaction Status Date / Time codeine Allergy Hallucinati Verified 07/17/20 03:56 ons morphine Allergy Hallucinati Verified 07/17/20 03:56 ons - Social History Does the pt smoke?: No Smoking Status: Unknown if ever smoked Does the pt drink ETOH?: No Does the pt have substance abuse?: No - Immunizations Immunizations are current?: Yes - POLST Patient has POLST: Yes POLST Status: DNR (Her PCP, Dr. Jacobs has the POLST form) PD ED PE NORMAL - Vitals Vital signs reviewed: Yes - General General: Alert and oriented X 3, No acute distress, Well developed/nourished - HEENT HEENT: PERRL, Moist mucous membranes - Neck Neck: Supple, no meningeal sign - Cardiac Cardiac: RRR, Strong equal pulses, Other (Harsh systolic murmur) - Respiratory Respiratory: No respiratory distress, Clear bilaterally - Abdomen Abdomen: Soft, Non tender, Non distended - Derm Derm: Warm and dry - Extremities Extremities: No edema - Neuro Neuro: Alert and oriented X 3, patent drafter 2-12 intact, No motor deficit, No sensory deficit, Normal speech - Psych Psych: Normal mood, Normal affect Results - Vitals Vitals: Vital Signs - 24 hr 05/13/21 16:00 Temperature 37.0 C Heart Rate 69 Respiratory 18 Rate Blood Pressure 155/87 H O2 Saturation 100 Oxygen O2 Source [Without Activity] Room air O2 Source Room air PD MEDICAL DECISION MAKING - ED course Complexity details: reviewed results, re-evaluated patient, considered differential, d/w patient ED course: Patient with asymptomatic hypertension. In accordance with the [facility] clinical policy from March 2012, this patient has asymptomatic elevated blood pressure without evidence of acute target organ injury. There are also no signs of acute stroke, cardiac ischemia, pulmonary edema, encephalopathy or acute congestive heart failure. Therefore the patient will be referred to their primary care provider for follow-up of their asymptomatic hypertension. Patient counseled regarding signs and symptoms for which I believe and urgent re-evaluation would be necessary. Patient with good understanding of and agreement to plan and is comfortable going home at this time This document was made in part using voice recognition software. While efforts are made to proofread this document, sound alike and grammatical errors may occur. Departure - Departure Disposition: 01 Home, Self Care Clinical Impression: Asymptomatic hypertension Condition: Good Instructions: ED HTN Established Follow-Up: Mosies Jacobs MD [Primary Care Provider] - Within 1 week Comments: Please follow-up with your doctor for adjustments of your anti-hypertensive medications. Please return if you develop symptoms such as chest pain, shortness of breath, vision changes, headache or focal neurological deficits such as weakness or numbness. Continue your current medications at home. Discharge Date/Time: 05/13/21 16:17
[2021-05-13 16:42] VITALS: BP 155/87
== END 2021-05-13 16:17 | disposition home or self-care (01) ==
LOC: ED 15:55
DX: I10 Essential (primary) hypertension (principal)
CPT/HCPCS: 99282; 99283

== ENCOUNTER 2021-07-26 08:01 | Emergency (ER) | payer MEDICARE, OTHER ==
--- NOTE | 2021-07-26 08:30 | ED Physician Documentation ---
History of Present Illness - Stated complaint Stated Complaint: SOA/COUGH - Chief complaint Chief Complaint: Resp - History obtained from History obtained from: Patient - History of Present Illness Timing: How many days ago (3) - Additonal information Additional information: generalized weakness and soa. Review of Systems Constitutional: reports: Fatigue. denies: Fever Eyes: denies: Decreased vision Ears: denies: Ear pain Nose: reports: Rhinorrhea / runny nose, Congestion Throat: denies: Sore throat Cardiac: denies: Chest pain / pressure, Palpitations Respiratory: reports: Cough. 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 - Present Medications Home Medications: Ambulatory Orders Medication Instructions Recorded Confirmed amLODIPine [Norvasc] 5 mg PO DAILY 03/29/18 05/21/21 Losartan Potassium 25 mg PO DAILY 07/17/20 05/21/21 - Allergies Allergies/Adverse Reactions: Allergies Allergy/AdvReac Type Severity Reaction Status Date / Time codeine Allergy Hallucinati Verified 05/21/21 02:28 ons morphine Allergy Hallucinati Verified 05/21/21 02:28 ons - Social History Does the pt smoke?: No Smoking Status: Never smoker Does the pt drink ETOH?: No Does the pt have substance abuse?: No - Immunizations Immunizations are current?: Yes - POLST Patient has POLST: Yes POLST Status: DNR (Her PCP, Dr. Jacobs has the POLST form) PD ED PE NORMAL - Vitals Vital signs reviewed: Yes (tachy ) - General General: Alert and oriented X 3, No acute distress - HEENT HEENT: Atraumatic, PERRL, EOMI, Ears normal - Neck Neck: Supple, no meningeal sign, No bony TTP - Cardiac Cardiac: No murmur, Other (tachy to 110) - Respiratory Respiratory: No respiratory distress, Clear bilaterally - Abdomen Abdomen: Soft, Non tender - Back Back: No CVA TTP, No spinal TTP - Derm Derm: Normal color, Warm and dry, No rash - Extremities Extremities: No deformity, No edema - Neuro Neuro: Alert and oriented X 3, protection specialist 2-12 intact, No motor deficit, No sensory deficit, Normal speech Eye Opening: Spontaneous Motor: Obeys Commands Verbal: Oriented GCS Score: 15 - Psych Psych: Normal mood, Normal affect Results - Vitals Vitals: Vital Signs - 24 hr 07/26/21 07/26/21 07/26/21 08:04 08:36 10:30 Temperature 37.6 C 37.6 C Heart Rate 108 H 102 H 91 Respiratory 22 21 17 Rate Blood Pressure 125/76 125/76 108/79 O2 Saturation 96 97 98 Oxygen O2 Source [] Room air O2 Source Room air - EKG (time done) 0818 [place]: Anterior hemiblock Ischemia: Non specific changes Compare to prior EKG: Unchanged from prior EKG (SPT 05-21-2021 no sig changes) Computer interpretation: Agree with computer - Labs Labs: Laboratory Tests 07/26/21 07/26/21 07/26/21 08:35 08:35 08:35 WBC 6.4 RBC 4.54 Hgb 13.8 Hct 40.8 MCV 89.9 MCH 30.4 MCHC 33.8 RDW 13.7 Plt Count 191 MPV 9.3 Neut # (Auto) 4.8 Lymph # (Auto) 1.0 L Snyder # (Auto) 0.5 Eos # (Auto) 0.1 Baso # (Auto) 0.0 Absolute Nucleated RBC 0.00 Nucleated RBC % 0.0 Sodium 134 L Potassium 4.2 Chloride 97 L Carbon Dioxide 27 Anion Gap 10.0 BUN 12 Creatinine 0.7 Estimated GFR (MDRD) 80 L Glucose 103 H Calcium 8.9 Total Bilirubin 0.5 AST 24 ALT 21 Alkaline Phosphatase 61 Troponin I High Sens 9.1 Total Protein 8.0 Albumin 4.1 Globulin 3.9 Albumin/Globulin Ratio 1.1 Lipase 29 Nasal Adenovirus (PCR) Nasal B. parapertussis DNA (PCR) Nasal Coronavir 229E PCR Nasal Coronavir HKU1 PCR Nasal Coronavir NL63 PCR Nasal Coronavir OC43 PCR Nasal Enterovir/Rhinovir PCR Nasal Influenza B PCR Nasal Influenza A PCR Nasal Parainfluen 1 PCR Nasal Parainfluen 2 PCR Nasal Parainfluen 3 PCR Nasal Parainfluen 4 PCR Nasal RSV (PCR) Nasal B.pertussis DNA PCR Nasal C.pneumoniae (PCR) Jose Angel Human Metapneumo PCR Nasal M.pneumoniae (PCR) Nasal SARS-CoV-2 (PCR) 07/26/21 08:35 WBC RBC Hgb Hct MCV MCH MCHC RDW Plt Count MPV Neut # (Auto) Lymph # (Auto) Snyder # (Auto) Eos # (Auto) Baso # (Auto) Absolute Nucleated RBC Nucleated RBC % Sodium Potassium Chloride Carbon Dioxide Anion Gap BUN Creatinine Estimated GFR (MDRD) Glucose Calcium Total Bilirubin AST ALT Alkaline Phosphatase Troponin I High Sens Total Protein Albumin Globulin Albumin/Globulin Ratio Lipase Nasal Adenovirus (PCR) NOT DETECTED Nasal B. parapertussis DNA (PCR) NOT DETECTED Nasal Coronavir 229E PCR NOT DETECTED Nasal Coronavir HKU1 PCR NOT DETECTED Nasal Coronavir NL63 PCR NOT DETECTED Nasal Coronavir OC43 PCR NOT DETECTED Nasal Enterovir/Rhinovir PCR NOT DETECTED Nasal Influenza B PCR NOT DETECTED Nasal Influenza A PCR NOT DETECTED Nasal Parainfluen 1 PCR NOT DETECTED Nasal Parainfluen 2 PCR NOT DETECTED Nasal Parainfluen 3 PCR NOT DETECTED Nasal Parainfluen 4 PCR NOT DETECTED Nasal RSV (PCR) NOT DETECTED Nasal B.pertussis DNA PCR NOT DETECTED Nasal C.pneumoniae (PCR) NOT DETECTED Jose Agnel Human Metapneumo PCR DETECTED A Nasal M.pneumoniae (PCR) NOT DETECTED Nasal SARS-CoV-2 (PCR) NOT DETECTED - Rads (name of study) chest Radiology: Prelim report reviewed (Impression: No acute cardiopulmonary pathology.), EMP read indepedently, See rad report Procedures - IVC sono (time) 0825 Bedside IVC sono: IVC measures (cm) (1.21), Dehydration (est 1 liter deficit) PD MEDICAL DECISION MAKING - ED course Complexity details: reviewed results, re-evaluated patient, considered differential, d/w patient ED course: 81 y/o female with cough and congestion has human metapneumovirus. She is mildly dehydrated on interrogation of the IVC and she is administered IV saline. Departure - Departure Disposition: 01 Home, Self Care Clinical Impression: Dehydration, Infection due to human metapneumovirus (hMPV) Condition: Stable Instructions: ED Dehydration, ED Viral Syndrome Follow-Up: Moises Jacobs MD [Primary Care Provider] - Comments: Dariela today it looks like you have a bronchial infection with human metapneumovirus. This is a cold virus and you should clear this similar to a cold. In addition today we did find you to be dehydrated and we have provided intravenous hydration. Discharge Date/Time: 07/26/21 11:15
--- NOTE | 2021-07-26 08:38 | XRAY Report ---
PROCEDURE: Chest 1 View X-Ray INDICATIONS: Chest pain TECHNIQUE: One view of the chest was acquired. COMPARISON: 05/21/2021 FINDINGS: Surgical changes and devices: None. Lungs and pleura: No pleural effusions or pneumothorax. Lungs are clear. Mediastinum: Mediastinal contours appear normal. Heart size is normal. Bones and chest wall: No suspicious bony lesions. Overlying soft tissues appear unremarkable. IMPRESSION: No acute cardiopulmonary pathology. Reviewed by: Beck Wagner MD on 07/26/2021 8:36 AM PDT Approved by: Beck Wagner MD on 07/26/2021 8:36 AM PDT Station ID: [id number]
[2021-07-26] MEDS: SODIUM CHLORIDE 0.9% 1,000 ML IV STA (08:47)
[2021-07-26 08:50] LABS: BASOPHILS % (AUTO) 0.3 %; EOSINOPHILS # (AUTO) 0.1 10^3/uL (0.0-0.7); EOSINOPHILS % (AUTO) 0.9 %; HCT - HEMATOCRIT 40.8 % (37.0-47.0); HGB - HEMOGLOBIN 13.8 g/dL (12.0-16.0); LYMPHOCYTES % (AUTO) 15.4 %; MEAN CORPUSCULAR HEMOGLOBIN 30.4 pg (27.0-31.0); MEAN CORPUSCULAR HGB CONC 33.8 g/dL (32.0-36.0); MEAN CORPUSCULAR VOLUME 89.9 fL (81.0-99.0); MEAN PLATELET VOLUME 9.3 fL (7.9-10.8); MONOCYTES # (AUTO) 0.5 10^3/uL (0.0-1.0); MONOCYTES % (AUTO) 7.4 %; NEUTROPHILS # (AUTO) 4.8 10^3/uL (1.5-6.6); NEUTROPHILS % (AUTO) 75.7 %; PLT - PLATELET COUNT 191 10^3/uL (130-450); RED BLOOD COUNT 4.54 10^6/uL (4.20-5.40); RED CELL DISTRIBUTION WIDTH 13.7 % (12.0-15.0); WHITE BLOOD COUNT 6.4 x10^3/uL (4.8-10.8)
[2021-07-26 09:14] LABS: ALBUMIN 4.1 g/dL (3.2-5.5); ALBUMIN/GLOBULIN RATIO 1.1 (1.0-2.2); BILIRUBIN,TOTAL 0.5 mg/dL (0.2-1.0); CALCIUM 8.9 mg/dL (8.5-10.3); CREATININE 0.7 mg/dL (0.4-1.0); POTASSIUM 4.2 mmol/L (3.5-5.0)
[2021-07-26 09:56] LABS: B. PARAPERTUSSIS- RESP PCR PAN NOT DETECTED; B. PERTUSSIS- RESP PCR PANEL NOT DETECTED; C. PNEUMONIAE- RESP PCR PANEL NOT DETECTED; CORONAVIRUS 229E-RESP PCR NOT DETECTED; CORONAVIRUS HKU1-RESP PCR NOT DETECTED; CORONAVIRUS NL63-RESP PCR NOT DETECTED; CORONAVIRUS OC43-RESP PCR NOT DETECTED; HUMAN METAPNEUMOVIRUS DETECTED; INFLUENZA A- RESP PCR PANEL NOT DETECTED; INFLUENZA B - RESP PCR PANEL NOT DETECTED; M. PNEUMONIAE- RESP PCR PANEL NOT DETECTED; PARAINFLUENZA VIRUS 1 NOT DETECTED; PARAINFLUENZA VIRUS 2 NOT DETECTED; PARAINFLUENZA VIRUS 3 NOT DETECTED; PARAINFLUENZA VIRUS 4 NOT DETECTED; RHINOVIRUS/ENTEROVIRUS NOT DETECTED; RSV- RESP PCR PANEL NOT DETECTED; SARS-CoV-2 -RESP PCR PANEL NOT DETECTED
[2021-07-26 10:58] VITALS: BP 108/79
== END 2021-07-26 11:15 | disposition home or self-care (01) ==
LOC: ED 08:01
DX: E86.0 Dehydration (principal); B97.81 Human metapneumovirus as the cause of diseases classified elsewhere; Z20.822 Contact with and (suspected) exposure to COVID-19; Z66 Do not resuscitate
CPT/HCPCS: 36415; 80053; 83690; 84484; 85025; 87633; 93005; 96360; 99283

== ENCOUNTER 2022-03-23 12:09 | Outpatient (CLI) | payer MEDICARE, OTHER | END 2022-03-23 12:10 | disposition critical access hospital (66) | LOC: EMS 12:09 | DX: R51.9 Headache, unspecified (principal); I10 Essential (primary) hypertension | CPT/HCPCS: A0425; A0429 ==

== ENCOUNTER 2022-03-25 16:14 | Outpatient (CLI) | payer MEDICARE, OTHER | END 2022-03-25 16:15 | disposition critical access hospital (66) | LOC: EMS 16:14 | DX: R53.1 Weakness (principal); R20.0 Anesthesia of skin; R47.81 Slurred speech; R51.9 Headache, unspecified | CPT/HCPCS: A0425; A0429 ==

== ENCOUNTER 2022-03-25 16:41 | Observation (INO) | payer MEDICARE, OTHER ==
[2022-03-25] MEDS ORDERED: iohexoL-300 100 ML VIAL ONE (16:50)
--- NOTE | 2022-03-25 16:55 | ED Physician Documentation ---
PD HPI FOCAL NEURO - Stated complaint Stated Complaint: L SIDE WEAKNESS/SLURRED SPEECH - History obtained from History obtained from: Patient, EMS - Additional information Additional information: 82-year-old woman seen by my partner 2 days ago for dizziness. At that time she said she did not note any strokelike symptoms but now in retrospect notes that her left upper field lip felt "warm" like a cold sore coming on but she did not mention it. Since then she has had progressive numbness of the left face and unsteadiness with listing to the left with walking. A mild headache. The dizziness is improved but still present. No history of stroke symptoms or heart disease. 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 - Present Medications Home Medications: Ambulatory Orders Medication Instructions Recorded Confirmed amLODIPine [Norvasc] 5 mg PO DAILY 03/29/18 05/21/21 Losartan Potassium 25 mg PO DAILY 07/17/20 05/21/21 Meclizine [Antivert] 12.5 mg PO Q6H PRN #20 tablet 03/23/22 Ondansetron Odt [Zofran] 4 mg TL Q6H PRN #10 tablet 03/23/22 amLODIPine [Norvasc] 5 mg PO DAILY #30 tablet 03/23/22 - Allergies Allergies/Adverse Reactions: Allergies Allergy/AdvReac Type Severity Reaction Status Date / Time codeine Allergy Hallucinati Verified 03/25/22 16:57 ons morphine Allergy Hallucinati Verified 03/25/22 16:57 ons - Social History Does the pt smoke?: No Smoking Status: Never smoker Does the pt drink ETOH?: No Does the pt have substance abuse?: No - Immunizations Immunizations are current?: Yes - POLST Patient has POLST: Yes POLST Status: DNR (Her PCP, Dr. Jacobs has the POLST form) PD ED PE NORMAL - Vitals Vital signs reviewed: Yes - General General: Alert and oriented X 3, No acute distress - HEENT HEENT: PERRL, EOMI - Neck Neck: Supple, no meningeal sign, No bony TTP - Cardiac Cardiac: RRR, No murmur - Respiratory Respiratory: No respiratory distress, Clear bilaterally - Abdomen Abdomen: Soft, Non tender - Back Back: No CVA TTP, No spinal TTP - Derm Derm: Normal color, Warm and dry - Extremities Extremities: No deformity, No edema, No calf tenderness / cord - Neuro Neuro: Alert and oriented X 3, No motor deficit, Normal speech Eye Opening: Spontaneous Motor: Obeys Commands Verbal: Oriented GCS Score: 15 NIHSS - Time Time: 16:50 - Level of Consciousness Level of consciousness: (0) Alert, Keenly responsive LOC Questions: (0) Answers both Q's correct LOC Commands: (0) Performs both correctly - Gaze Best Gaze: (0) Normal - Visual Visual: (0) No loss - Facial Palsy Facial Palsy: (0) Normal, symmetrical movement - Motor Arms (both separate) Motor Arm (right): (0) No drift Motor Arm (left): (0) No drift - Motor Legs (both separate) Motor Leg (right): (0) No drift Motor Leg (left): (0) No drift - Limb Ataxia Limb Ataxia: (1) Present in 1 limb (Mild ataxia with finger-nose testing in the left arm, normal rdkd-xf-dmow testing on both sides.) - Sensory Sensory: (1) Qcec-qf-scqzouvm loss (Mild in the face only) - Best Language Best Language: (0) No aphasia - Dysarthria Dysarthria: (0) Normal - Extinction and Inattention (formally neg Extinction and inattention: (0) No abnormality - Total Score/Results Total Score/Result: 2 Results - Vitals Vitals: Vital Signs - 24 hr 03/25/22 03/25/22 03/25/22 16:52 18:01 19:58 Temperature 36.7 C Heart Rate 73 62 70 Respiratory 20 18 14 Rate Blood Pressure 136/67 H 140/68 H 156/73 H O2 Saturation 98 100 100 Oxygen O2 Source [] Room air O2 Source Room air - EKG (time done) 1841 Rate: Rate (enter#) (67) Rhythm: NSR [place]: LAD Intervals: Normal [place] QRS: Normal Ischemia: Non specific changes. No: ST elevation c/w ischemia, ST depression - Labs Labs: Laboratory Tests 03/25/22 03/25/2223 17:58 17:58 18:32 WBC 11.4 H RBC 4.80 Hgb 14.1 Hct 43.2 MCV 90.0 MCH 29.4 MCHC 32.6 RDW 13.5 Plt Count 282 MPV 10.3 Neut # (Auto) 7.7 H Lymph # (Auto) 2.9 Yates # (Auto) 0.7 Eos # (Auto) 0.1 Baso # (Auto) 0.0 Absolute Nucleated RBC 0.00 Nucleated RBC % 0.0 PT 11.8 INR 1.1 Sodium 136 Potassium 4.1 Chloride 96 L Carbon Dioxide 27 Anion Gap 13.0 BUN 21 H Creatinine 0.6 Estimated GFR (MDRD) 95 Glucose 101 H Calcium 9.4 Total Bilirubin 0.5 AST 23 ALT 20 Alkaline Phosphatase 53 Total Protein 7.9 Albumin 4.1 Globulin 3.8 Albumin/Globulin Ratio 1.1 - Rads (name of study) MRI Brain-Left pontine stroke, age-related changes Radiology: Final report received, EMP read indepedently CT angiography of the neck shows bilateral common carotid 50% stenoses Radiology: Final report received, EMP read indepedently CT angio of the head showing diminutive left A1 likely congenital Radiology: Final report received, EMP read indepedently PD Medical Decision Making - ED course Complexity details: d/w project management consultant (Spoke with Dr. Melissa Smith, [facility] hospitalist at 8:30 PM who will admit) ED course: This is an 82-year-old woman who was seen here 2 days ago for disequilibrium and nausea. There is nothing in the history or physical at that time to suggest CVA. Since then she has developed worsening left facial numbness and warmth as well as an ataxia in the left upper extremity. She was sent expeditiously over for MRI of the brain which demonstrated a left pontine stroke. She was administered dual antiplatelet therapy with aspirin and Plavix. She was quite symptomatic when she moves with the vertigo so was given Reglan since she has already tried meclizine which was not effective. Subsequently went over for CT angiography of the head and neck which did not show any tight stenosis or occlusion. She was still quite symptomatic and the decision was made to admit her for further evaluation and treatment. CBC reviewed showing mild leukocytosis. INR reviewed and normal. CMP reviewed and basically normal. I spoke with the granddaughter, Shauna by phone at approximately 8:10 PM and updated her at the patient's request. Departure - Departure Disposition: ED Place in Observation Clinical Impression: Left pontine stroke Condition: Serious
[2022-03-25 18:07] LABS: BASOPHILS % (AUTO) 0.4 %; EOSINOPHILS # (AUTO) 0.1 10^3/uL (0.0-0.7); EOSINOPHILS % (AUTO) 0.7 %; HCT - HEMATOCRIT 43.2 % (37.0-47.0); HGB - HEMOGLOBIN 14.1 g/dL (12.0-16.0); LYMPHOCYTES # (AUTO) 2.9 10^3/uL (1.5-3.5); LYMPHOCYTES % (AUTO) 25.8 %; MEAN CORPUSCULAR HEMOGLOBIN 29.4 pg (27.0-31.0); MEAN CORPUSCULAR HGB CONC 32.6 g/dL (32.0-36.0); MEAN PLATELET VOLUME 10.3 fL (7.9-10.8); MONOCYTES # (AUTO) 0.7 10^3/uL (0.0-1.0); MONOCYTES % (AUTO) 5.9 %; NEUTROPHILS # (AUTO) 7.7 10^3/uL (1.5-6.6); NEUTROPHILS % (AUTO) 66.9 %; PLT - PLATELET COUNT 282 10^3/uL (130-450); RED CELL DISTRIBUTION WIDTH 13.5 % (12.0-15.0); WHITE BLOOD COUNT 11.4 x10^3/uL (4.8-10.8)
--- NOTE | 2022-03-25 18:08 | MRI Report ---
PROCEDURE: BRAIN WO INDICATIONS: stroke sx TECHNIQUE: Noncontrast axial T1 spin echo, axial T2 fast spin echo, sagittal and axial FLAIR, coronal T2 fast sp in echo, axial gradient echo, axial diffusion and ADC through the brain. COMPARISON: CT of the brain dated 07/17/2020. FINDINGS: Image quality: Excellent. CSF Spaces: Basal cisterns are patent. No extra-axial fluid collections. Ventricles are normal in size and shape. Brain: Focal area of restricted diffusion is noted involving the posterior lateral aspect of left po ns consistent with acute left pontine infarction. Diffuse age-related volume loss is seen. Extensive periventricular and deep white matter chronic small vessel ischemic changes are noted. No intracrania l masses or hemorrhage. No midline shift or mass effect. Skull and face: Calvarium has normal marrow signal. Orbits appear normal. Sinuses: Sinuses and mastoids are clear. IMPRESSION: 1. Focal restricted diffusion involving the left posterior lateral pj suggestive of acute left pont ine infarction. 2. Age-related volume loss and extensive white matter chronic small vessel ischemic changes. 3. No acute intracranial bleed. No midline shift. Reviewed by: Beck Wagner MD on 03/25/2022 6:06 PM PST Approved by: Beck Wagner MD on 03/25/2022 6:06 PM PST Station ID: [id number]
[2022-03-25] MEDS ORDERED: CLOPIDOGREL 300 MG TABLET PO STA (18:14)
[2022-03-25] MEDS ORDERED: ASPIRIN CHEW 81 MG TABLET PO STA (18:14)
[2022-03-25] MEDS ORDERED: METOCLOPRAMIDE 10 MG/2 ML VIAL IVP STA (18:17)
[2022-03-25 18:19] LABS: INR 1.1 (0.8-1.2); PT - PROTHROMBIN TIME 11.8 secs (9.9-12.6)
[2022-03-25 18:48] LABS: ALBUMIN 4.1 g/dL (3.2-5.5); ALBUMIN/GLOBULIN RATIO 1.1 (1.0-2.2); BILIRUBIN,TOTAL 0.5 mg/dL (0.2-1.0); CALCIUM 9.4 mg/dL (8.5-10.3); CREATININE 0.6 mg/dL (0.4-1.0); POTASSIUM 4.1 mmol/L (3.5-5.0); TOTAL PROTEIN 7.9 g/dL (6.7-8.2)
--- NOTE | 2022-03-25 19:58 | CT Report ---
PROCEDURE: ANGIO HEAD W/WO INDICATIONS: stroke sx CONTRAST: 80mL Omni 300 TECHNIQUE: Precontrast 4.5 mm thick angled axial sections acquired from the foramen magnum to the vertex. Afte r the administration of intravenous contrast, 1 mm thick sections acquired through the [place] [employer] of [place] is. Postcontrast 4.5 mm thick sections then re-acquired from the foramen magnum to the vertex. 3-di mensional hdcazqt-ckqrvbyku-ddezlmzpsv (MIP) and/or volume rendering reformats were acquired of the c entral intracranial vasculature. For radiation dose reduction, the following was used: automated ex posure control, adjustment of mA and/or kV according to patient size. COMPARISON: MRI of brain from the same day. CT of head dated 07/17/2020. FINDINGS: Image quality: Excellent. Anterior circulation: Intracranial internal carotid arteries are normal in size and flow. Diminutiv e left A1 segment is noted. The flow within more distal paired anterior cerebral arteries is normal a nd symmetric. The flow within the middle cerebral arteries is normal and symmetric. The anterior co mmunicating artery is seen. No aneurysms are seen. Posterior circulation: Visualized portions of the vertebral arteries demonstrate dominant left verte bral artery. The 2 distal vertebral arteries join to form a normal appearing basilar artery. Flow wi thin the posterior cerebral arteries is normal and symmetric. No aneurysms are seen. CSF spaces: Ventricles are normal in size and shape. Basal cisterns are patent. No extra-axial flu id collections. Brain: There is age related volume loss and moderate periventricular and deep white matter chronic s mall vessel ischemic changes. No area of abnormal intracranial enhancement is seen. No midline shift. No intracranial bleeds or masses. Mason-white matter interface appears intact. Skull and face: Calvarium and facial bones appear intact, without suspicious lesions. Sinuses: Visualized sinuses and mastoids are clear. IMPRESSION: 1. Diminutive appearing left A1 segment likely represent congenital finding. No other hemodynamically significant stenosis or aneurysm is seen in the intracranial circulation. 2. Dominant left vertebral artery. 3. No CT evidence of acute intracranial bleed, midline shift or mass effect. No area of abnormal cont rast enhancement. MR finding of acute infarction involving left posterior lateral pj is not well se en on this study. Reviewed by: Beck Wagner MD on 03/25/2022 7:57 PM PST Approved by: Beck Wagner MD on 03/25/2022 7:57 PM [facility] Station ID: [id number]
--- NOTE | 2022-03-25 20:01 | CT Report ---
PROCEDURE: ANGIO NECK W INDICATIONS: stroke sx CONTRAST: 80mL Omni 300 TECHNIQUE: After the administration of intravenous contrast, 1.5 mm axial sections acquired from the aortic arch to the [place] of [place]. Coronal 3-D maximum intensity projection (MIP) and/or volume rendering ref ormats were then performed. For radiation dose reduction, the following was used: automated exposur e control, adjustment of mA and/or kV according to patient size. COMPARISON: None. FINDINGS: Image quality: Excellent. Carotid system: The great vessels demonstrate a conventional anatomy as they arise from the aortic a rch. The origins of the common carotid arteries appear patent. The common carotid arteries demonstr ate normal calibers and courses. Moderate amount of atherosclerotic calcifications involving the left carotid bulb and origin of left internal carotid artery with 40-50% stenosis. Mild atherosclerotic c alcifications in the origin of right internal carotid artery and right carotid bulb is also seen with minimal stenosis. The internal carotid arteries demonstrate normal caliber and course. Posterior circulation: The origins of the vertebral arteries appear patent. Dominant left vertebral artery is noted The more superior portions of the vertebral arteries demonstrate normal course and c aliber. They join to form a normal appearing basilar artery. Soft tissues: Visualized neck soft tissues demonstrate no suspicious abnormalities. The thyroid is normal in size and there are no incidental findings. Bones: No suspicious bony lesions. Visualized cervical spine appears normally aligned. IMPRESSION: 1. Atherosclerotic disease involving bilateral common carotid arteries and origin of bilateral project management intern al carotid arteries with up to 40-50% stenosis involving origin of left internal carotid artery and m inimal stenosis in origin of right internal carotid artery. 2. No hemodynamically significant stenosis is seen rest of bilateral carotid arteries or vertebral ar teries. The estimate of stenosis included in the report of the imaging study was calculated using the NASCET method CLINICAL RECOMMENDATION STATEMENTS: In patients <35 years with an ITN detected on CT, MRI, or extrathyroidal ultrasound, the Committee re commends further evaluation with dedicated thyroid ultrasound if the nodule is "e1 cm and has no susp icious imaging features, and if the patient has normal life expectancy. In patients "e35 years with an ITN detected on CT, MRI, or extrathyroidal ultrasound, the Committee r ecommends further evaluation with dedicated thyroid ultrasound if the nodule is "e1.5 cm and has no s uspicious imaging features, and if the patient has normal life expectancy. (ACR, 2014) Reviewed by: Beck Wagner MD on 03/25/2022 8:00 PM PST Approved by: Beck Wagner MD on 03/25/2022 8:00 PM PST Station ID: [id number]
[2022-03-25] MEDS ORDERED: iohexoL-300 100 ML VIAL IVP ONE (20:26)
--- NOTE | 2022-03-25 20:30 | HISTORY & PHYSICAL EXAMINATION ---
Chief Complaint - Chief Complaint Chief Complaint: N/V, Dizziness History of Present Illness - Admitted From Admitted From:: ER - History Obtained From Exam Limitations: H&P was conducted via video remotely, using Access Cart. - History of Present Illness HPI Comment/Other: 82 yo F with h/o HTN presented to the ER with c/o 2 day h/o persistent N/V, Dizziness, L face numbness, L side imbalance. Pt first presented to the ER 2 days ago for N/V x [id number], Dizziness. Pt was treated for vertigo and given Meclizine, which did not help. She called her PCP today who told her to go back to the ER. Pt presented again today for persistent N/V, Dizziness and now reports L face numbness and imbalance on the L side. She noticed a warm sensation on her L face. She has also noticed that she is imbalanced on the L side, like she would fall over if she is not holding onto something. She also has a little difficulty grasping things. No CP/SOB/cough/Diarrhea/dysuria/F/C. In the ER, BP 150s/70s, NIH score 2 for ataxia f-n on L, mild sensory loss on L CTA Head/Neck: neg MRI: L pontine infarct Pt was given Reglan, ASA/Plavix in the ER. 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 She does not smoke, uses no alcohol. - Substance History Use: Uses substance without health or social issues: NONE - POLST Patient has POLST: Yes POLST Status: DNR (Her PCP, Dr. Jacobs has the POLST form) Meds/Allgy - Home Medications Home Medications: Ambulatory Orders Medication Instructions Recorded Confirmed amLODIPine [Norvasc] 5 mg PO DAILY 03/29/18 05/21/21 Losartan Potassium 25 mg PO DAILY 07/17/20 05/21/21 Meclizine [Antivert] 12.5 mg PO Q6H PRN #20 tablet 03/23/22 Ondansetron Odt [Zofran] 4 mg TL Q6H PRN #10 tablet 03/23/22 amLODIPine [Norvasc] 5 mg PO DAILY #30 tablet 03/23/22 - Allergies Allergies/Adverse Reactions: Allergies Allergy/AdvReac Type Severity Reaction Status Date / Time codeine Allergy Hallucinati Verified 03/25/22 16:57 ons morphine Allergy Hallucinati Verified 03/25/22 16:57 ons Review of Systems - All Other Systems All Other Systems: reports: Reviewed and negative Exam - Vital Signs Reviewed Vital Signs: Yes Vital Signs: Vital Signs x48h Temp Pulse Resp BP Pulse Ox 03/25/22 19:58 70 14 156/73 H 100 03/25/22 18:01 62 18 140/68 H 100 03/25/22 16:52 36.7 C 73 20 136/67 H 98 - Physical Exam General Appearance: positive: No acute distress Eyes Bilateral: positive: Normal inspection, PERRL, EOMI Respiratory: positive: No respiratory distress, Other (no access to stethoscope; per ER Provider: CTA B/L) Cardiovascular: positive: Other (no access to stethoscope; per ER Provider: RRR, no murmurs) Abdomen: positive: Other ( per ER Provider: non-distended, NT, Soft) Extremities: positive: Full ROM Neurologic/Psychiatric: positive: Oriented x3, Sensory loss, Other ( unable to do Neuro exam via video; per ER Provider: NIH 2: decreased L finger to nose coordination, decreased sensation L side) Conclusion/Plan - Problem List (1) Left pontine stroke Conclusion/Plan: L Pontine CVA, subacute -NIH score 2 for ataxia f-n on L, mild sensory loss on L -CTA Head/Neck: neg -MRI: L pontine infarct -Pt was given Reglan, ASA/Plavix in the ER. -pt not previously taking ASA. Continue ASA/Plavix x 3 weeks, then ASA alone. -add Statin -admit to Obs/Tele -Echo, Carotid US ordered. -PT/OT/SW consults HTN -BP 150s/70s -continue home medications: Amlodipine, Losartan VTE Prophylaxis: Lovenox Code Status: DNR/DNI; D/W pt. - Lab Results Fish Bones: 03/25/22 17:58 03/25/22 18:32
[2022-03-25] MEDS ORDERED: ONDANSETRON ODT 4 MG TABLET TL PRN (21:29)
[2022-03-25] MEDS ORDERED: ACETAMINOPHEN 325 MG TABLET PO PRN (21:30)
[2022-03-25] MEDS ORDERED: PROMETHAZINE 25 MG/1 ML VIAL IM PRN (21:35)
[2022-03-25] MEDS ORDERED: SODIUM CHLORIDE FLUSH 0.9% 10 ML SYRINGE IVP PRN (21:35)
[2022-03-25] MEDS ORDERED: ONDANSETRON 4 MG/2 ML VIAL IVP PRN (21:35)
[2022-03-25 22:07] LABS: INR 1.1 (0.8-1.2); PT - PROTHROMBIN TIME 11.8 secs (9.9-12.6)
[2022-03-26] MEDS: SODIUM CHLORIDE FLUSH 0.9% 10 ML SYRINGE IVP SCH ×2 (01:20→09:15)
[2022-03-26 08:17] LABS: CHOLESTEROL 217 mg/dL; HDL CHOLESTEROL 43 mg/dL; LDL CHOLESTEROL,CALCULATED 162 mg/dL; LDL/HDL RATIO 3.8 (<4.4); TRIGLYCERIDES 60 mg/dL; VLDL CHOLESTEROL 12 mg/dL
[2022-03-26] MEDS ORDERED: amLODIPine 5 MG TABLET PO SCH (09:00)
[2022-03-26] MEDS ORDERED: ENOXAPARIN 30 MG/0.3 ML SYRINGE SUBQ SCH (09:00)
[2022-03-26] MEDS ORDERED: CLOPIDOGREL 75 MG TABLET PO SCH (09:00)
[2022-03-26] MEDS ORDERED: ASPIRIN CHEW 81 MG TABLET PO SCH (09:00)
--- NOTE | 2022-03-26 11:10 | PHARMACY PROGRESS NOTE ---
- Best Possible Medication History Admit Date and Time: 03/25/227 Processed by: Pharmacy Medication History completed: Yes Patient Interview: Completed Secondary Source(s): Pharmacy records As the person ultimately responsible for medication therapy, providers are able to order a medication from an existing home medication list in [facility] via the "Reconcile Routine" prior to Confirmation of that medication by print support specialist. Such practice is discouraged except when the physician, in their clinical judgment, deems that a medical need exists for a medication without regard to previous use.
[2022-03-26 11:37] LABS: ESTIMATED AVERAGE GLUCOSE 114 mg/dL (70-100); HEMOGLOBIN A1c% 5.6 % (4.27-6.07)
[2022-03-26 12:06] VITALS: BP 138/66
--- NOTE | 2022-03-26 13:01 | DISCHARGE SUMMARY ---
"Discharge Summary Admit Date: 03/25/22 Discharge Date: 03/26/22 Discharging Provider: Abigail Boo MD Primary Care Provider: Moises Jacobs MD Code Status: Do Not Attempt Resuscitation Condition at Discharge: Fair Discharge Disposition: 06 Home Health Service - DIAGNOSES Discharge Diagnoses with Status of Each Condition: 1. Left pontine infarction With residual of gait ataxia, decreased sensation 2. Arteriosclerosis of carotid arteries without stenosis 3. Hypertension 4. Hyperlipidemia. Cholesterol 217. LDL 162. VLDL 12. HDL 43. Triglycer ides 60. 5. aortic stenosis - HPI History of Present Illness: 82 yo F with h/o HTN presented to the ER with c/o 2 day h/o persistent N/V, Dizziness, L face numbness, L side imbalance. Pt first presented to the ER 2 days ago for N/V x 8-[id number]-[id number], Dizziness. Pt was treated for vertigo and given Meclizine, which did not help. She called her PCP today who told her to go back to the ER. Pt presented again today for persistent N/V, Dizziness and now reports L face numbness and imbalance on the L side. She noticed a warm sensation on her L face. She has also noticed that she is imbalanced on the L side, like she would fall over if she is not holding onto something. She also has a little difficulty grasping things. No CP/SOB/cough/Diarrhea/dysuria/F/C. In the ER, BP 150s/70s, NIH score 2 for ataxia f-n on L, mild sensory loss on L CTA Head/Neck: neg MRI: L pontine infarct Pt was given Reglan, ASA/Plavix in the ER. 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 Brain MRI compared to CT of head July 17, 2020. Focal restricted diffusion involving the left posterior lateral pj suggestive of acute left pontine infarction. Age-related volume loss and extensive white matter chronic small v essel ischemic changes. No acute intracranial bleed. 2. Head CT angiogram with diminutive appearing left A1 segment likely representing congenital finding. No other hemodynamically significant stenosis or aneurysm seen in the intracranial circulation. Dominant left vertebral artery. No CT evidence of acute intracranial bleed, midline shift, or mass- effect. No area of abnormal enhancement. 3. Neck CT angiogram with atherosclerotic disease involving bilateral common carotid arteries and origin of bilateral internal carotid arteries with up to 40 to 50% stenosis involving the origin of the left internal carotid artery and minimal stenosis in the origin of the right internal carotid artery. No hemodynamically significant stenosis is seen in the rest of the bilateral carotid arteries or vertebral arteries. 4. Echocardiogram is with mild concentric left ventricular hypertrophy. Ej ection fraction is 50 to 5 to 60%. Impaired relaxation consistent with grade 1 diastolic dysfunction. No regional wall motion abnormalities. Left atrial volume index mildly enlarged at 36 mm/m. Right atrial size normal. Mild aortic stenosis with peak/mean pressure gradient of 26 mmHg / 15 mmHg. The aortic valve area by continuity equation is 1.39 cm. Maximal velocity is 2.6 m/s. - HOSPITAL COURSE Hospital Course: Management of this luis elderly female consisted mainly of adjusting her medications and trying to reduce the risk of recurrent stroke. I explained to her and her granddaughters that it would be about making sure her blood pressure is perfect, cholesterol was perfect, and that if she was a diabetic making sure her sugar was perfect. She was started on Zocor, Plavix and aspirin for 21 days, and home health with PT and OT was requested for home. I have asked her to see her primary care provider in 1 to 2 weeks. He she needs to stop her Plavix in 21 days. Needs to have her blood pressure and lipid panel checked. At discharge temperature was 36.4. Heart rate 75. Blood pressure 138/66. Respirations 16 and 100% on room air. Neck was supple no bruits. Lungs were clear. She had a regular rate and rhythm with a soft systolic ejection murmur. But there is no facial asymmetry. No dysarthria. She was seen by occupational and physical therapy and there is no noted nystagmus. There is some problems with blurry and double vision especially in the left eye. But upper extremity strength and lower extremity strength were coordinated. She required some contact-guard assist for things like getting dressed. Getting off the toilet. Both PT and OT recommended that she be discharged with home health PT, OT, bath aide.She was walking with a walker at discharge. Greater than 30 minutes was spent coordinating discharge - ALLERGIES Allergies/Adverse Reactions: Allergies Allergy/AdvReac Type Severity Reaction Status Date / Time codeine Allergy Hallucinati Verified 03/25/22 16:57 ons morphine Allergy Hallucinati Verified 03/25/22 16:57 ons - MEDICATIONS Home Medications: Ambulatory Orders Medication Instructions Recorded Confirmed amLODIPine [Norvasc] 5 mg PO DAILY 03/29/18 03/31/22 Losartan Potassium 25 mg PO DAILY 07/17/20 03/31/22 Aspirin Chewable [[facility] [place] 81 mg PO DAILY tab 03/26/22 03/31/22 Aspirin] Atorvastatin [Lipitor] 80 mg PO QPM #30 tab 03/26/22 03/31/22 Clopidogrel [Plavix] 75 mg PO DAILY #21 tab 03/26/22 03/31/22 - LABS Result Diagrams: 03/25/22 17:58 03/25/22 18:32"
--- NOTE | 2022-03-26 13:16 | Discharge Plan ---
Discharge Plan Problem Reviewed?: Yes Disposition: Home Health Service Condition: Fair Prescriptions: Atorvastatin [Lipitor] 80 mg PO QPM #30 tab Clopidogrel [Plavix] 75 mg PO DAILY #21 tab Diet: Cardiac Activity Restrictions: Activity as Tolerated Shower Restrictions: No Driving Restrictions: Yes (no driving) Health Concerns: You live with your granddaughters. And your risk factors for stroke are high blood pressure and high cholesterol. You do not smoke and you do not have diabetes. You were seen in the emergency room 2 days before this admission with dizziness. At that time in the emergency room your vitals were normal, your exam was normal, and you were sent home with [facility]. Your dizziness continued and now you started having a feeling of left body warmth, and numbness of your face and left arm. So you came back to the emergency room and this time MRI of the brain showed you to have a very tiny pinpoint stroke in the left upper part of your brain. We also find her to have mildly high cholesterol. This will lead to increased risk of stroke. You already controlled your blood pressure with amlodipine and losartan. We evaluated you for diabetes and you do not have diabetes. We also evaluated your heart for valvular heart disease and you do have the very early findings of something called aortic stenosis. This is where the aortic valve, the fourth and final valve of your heart, starts to get calcified and a little bit narrow. It is not of any worry for you right now. You were seen by physical and Occupational Therapy. Although you do have the sensation of left face numbness, and a difference in the feeling of your swallowing, you have no facial drooping. Your arm and leg are working just fine. Plan of Treatment: 1. For the treatment of someone who has had a stroke, We start medications to reduce the risk of your neck stroke. Those medications will be: +A cholesterol pill to lower your cholesterol to as low as possible which will be Zocor +Medicine which will thin your platelets to reduce your risk of stroke which will be Plavix for 21 days as well as aspirin. Although the Plavix was stopped in 21 days, you will continue to take the aspirin indefinitely. Since you do not have diabetes you do not to take diabetic medicine. You also do not smoke. Those prescriptions have been called into the [facility] pharmacy on [place]. You can start them tomorrow. You have already had your medicines while you were in the hospital for today. 2. We will be ordering a home health aide, and a home health PT and OT therapist to help you make sure your balance stays good and that your strength stays good 3. Please see your primary care provider, Dr. Jacobs, in the next 1 to 2 weeks. In the next month we will draw blood work to make sure your cholesterol is low enough. He will also make sure you stop your Plavix at 21 days. And he will check your blood pressure. Care Goals: To reduce your risk of stroke is much as possible and to continue to remain independent in your apartment, living with your granddaughters Assessment: Patient is an alert, oriented elderly female. Lucid historian. Able to describe any discomfort. She feels comfortable going home under the care of her granddaughters. I discussed the case with her granddaughter Shauna who is a private duty caregiver. Shauna is at [phone]. Follow-Up Care: Home Health - RN, Home Health - PT, Home Health - OT, Home Health - ST No Smoking: If you smoke, Please STOP! Call for help. Follow-up with: Moises Jacobs MD [Physician No Access] -
[2022-03-26] MEDS ORDERED: ATORVASTATIN 40 MG TABLET PO SCH (21:00)
== END 2022-03-26 16:20 | disposition home health service (06) ==
LOC: EDUNIT# → ED 16:41 → MS2 21:35
PROVIDERS: ADMIT Internal Medicine; ATTEND Specialist
DX: I63.9 Cerebral infarction, unspecified (principal); R29.702 NIHSS score 2; R26.0 Ataxic gait; I65.23 Occlusion and stenosis of bilateral carotid arteries; I35.0 Nonrheumatic aortic (valve) stenosis; E78.5 Hyperlipidemia, unspecified; R20.9 Unspecified disturbances of skin sensation; R20.0 Anesthesia of skin; H53.8 Other visual disturbances; H53.2 Diplopia; I10 Essential (primary) hypertension; Z66 Do not resuscitate; Z20.822 Contact with and (suspected) exposure to COVID-19
CPT/HCPCS: 36415; 70496; 70498; 70551; 80053; 80061; 83036; 85025; 85610; 87635; 93005; 93306; 96372; 96374; 97162; 97166; 99284; 99285; A9270; G0378; J1650; J2765; Q9967; 83721

== ENCOUNTER 2022-03-31 18:22 | Outpatient (CLI) | payer MEDICARE, OTHER | END 2022-03-31 18:23 | disposition critical access hospital (66) | LOC: EMS 18:22 | DX: R19.7 Diarrhea, unspecified (principal); R42 Dizziness and giddiness; R63.8 Other symptoms and signs concerning food and fluid intake | CPT/HCPCS: A0425; A0427 ==

== ENCOUNTER 2022-03-31 18:50 | Emergency (ER) | payer MEDICARE, OTHER ==
[2022-03-31 19:17] LABS: BASOPHILS # (AUTO) 0.1 10^3/uL (0.0-0.1); BASOPHILS % (AUTO) 0.4 %; EOSINOPHILS # (AUTO) 0.1 10^3/uL (0.0-0.7); EOSINOPHILS % (AUTO) 0.7 %; HCT - HEMATOCRIT 38.3 % (37.0-47.0); HGB - HEMOGLOBIN 12.6 g/dL (12.0-16.0); LYMPHOCYTES # (AUTO) 1.9 10^3/uL (1.5-3.5); LYMPHOCYTES % (AUTO) 15.8 %; MEAN CORPUSCULAR HEMOGLOBIN 29.2 pg (27.0-31.0); MEAN CORPUSCULAR HGB CONC 32.9 g/dL (32.0-36.0); MEAN CORPUSCULAR VOLUME 88.9 fL (81.0-99.0); MONOCYTES # (AUTO) 0.7 10^3/uL (0.0-1.0); MONOCYTES % (AUTO) 6.1 %; NEUTROPHILS # (AUTO) 9.3 10^3/uL (1.5-6.6); NEUTROPHILS % (AUTO) 76.7 %; PLT - PLATELET COUNT 228 10^3/uL (130-450); RED BLOOD COUNT 4.31 10^6/uL (4.20-5.40); RED CELL DISTRIBUTION WIDTH 13.2 % (12.0-15.0); WHITE BLOOD COUNT 12.1 x10^3/uL (4.8-10.8)
[2022-03-31 19:29] LABS: ALBUMIN 3.9 g/dL (3.2-5.5); ALBUMIN/GLOBULIN RATIO 1.1 (1.0-2.2); BILIRUBIN,TOTAL 0.5 mg/dL (0.2-1.0); CALCIUM 8.8 mg/dL (8.5-10.3); CREATININE 0.5 mg/dL (0.4-1.0); MAGNESIUM 1.9 mg/dL (1.7-2.8); POTASSIUM 3.6 mmol/L (3.5-5.0); TOTAL PROTEIN 7.4 g/dL (6.7-8.2)
[2022-03-31] MEDS ORDERED: SODIUM CHLORIDE 0.9% 1,000 ML IV STA (19:59)
--- NOTE | 2022-03-31 20:26 | ED Physician Documentation ---
History of Present Illness - Stated complaint Stated Complaint: DIARRHEA - Chief complaint Chief Complaint: Abd Pain - History obtained from History obtained from: Patient - Additonal information Additional information: Patient comes to the emergency department chief complaint of diarrhea that started today. She states it is not watery but more of a runny stool and that she has had numerous episodes today. She has not felt as though she had a fever necessarily and has not measured her temperature, but has had significant chills on and off. She states she has a mild ache across her abdomen but this is fairly generalized and only worsens when she is about to have another episode of diarrhea. Patient denies any blood in her stools. She does feel little weak. No nausea or vomiting. No respiratory symptoms. The patient states that she does not have any underlying bowel issues. She states her last episode of diarrhea was at around 1900. No other complaints at this time. She does admit to taking a dose of Imodium prior to coming in. Patient has not been on any antibiotics recently. No camping or exotic travel. Review of Systems Constitutional: reports: Reviewed and negative Eyes: reports: Reviewed and negative Ears: reports: Reviewed and negative Nose: reports: Reviewed and negative Throat: reports: Reviewed and negative Cardiac: reports: Reviewed and negative Respiratory: reports: Reviewed and negative GI: reports: Abdominal Pain (Cramping, mild), Diarrhea : reports: Reviewed and negative Skin: reports: Reviewed and negative Musculoskeletal: reports: Reviewed and negative Neurologic: reports: Reviewed and negative Psychiatric: reports: Reviewed and negative Endocrine: reports: Reviewed and negative Immunocompromised: reports: Reviewed and negative PD PAST MEDICAL HISTORY - Past Medical History Past Medical History: Yes Cardiovascular: Hypertension, High cholesterol Respiratory: Pneumonia Neuro: Head injury GI: Chronic constipation Psych: Anxiety - Past Surgical History Past Surgical History: Yes 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 - Present Medications Home Medications: Ambulatory Orders Medication Instructions Recorded Confirmed amLODIPine [Norvasc] 5 mg PO DAILY 03/29/18 03/31/22 Losartan Potassium 25 mg PO DAILY 07/17/20 03/31/22 Aspirin Chewable [[place] 81 mg PO DAILY tab 03/26/22 03/31/22 Aspirin] Atorvastatin [Lipitor] 80 mg PO QPM #30 tab 03/26/22 03/31/22 Clopidogrel [Plavix] 75 mg PO DAILY #21 tab 03/26/22 03/31/22 - Allergies Allergies/Adverse Reactions: Allergies Allergy/AdvReac Type Severity Reaction Status Date / Time codeine Allergy Hallucinati Verified 03/25/22 16:57 ons morphine Allergy Hallucinati Verified 03/25/22 16:57 ons - Social History Does the pt smoke?: No Smoking Status: Never smoker Does the pt drink ETOH?: No Does the pt have substance abuse?: No - Immunizations Immunizations are current?: Yes - POLST Patient has POLST: Yes POLST Status: DNR (Her PCP, Dr. Jacobs has the POLST form) PD ED PE NORMAL - Vitals Vital signs reviewed: Yes - General General: Alert and oriented X 3, No acute distress, Well developed/nourished - HEENT HEENT: Atraumatic, PERRL, EOMI, Moist mucous membranes - Neck Neck: Supple, no meningeal sign - Cardiac Cardiac: RRR, Strong equal pulses, Other (3/6 systolic murmur) - Respiratory Respiratory: No respiratory distress, Clear bilaterally - Abdomen Abdomen: Soft, Non tender, Non distended - Derm Derm: Normal color, Warm and dry, No rash - Extremities Extremities: No deformity, No edema - Neuro Neuro: Alert and oriented X 3, shell plater 2-12 intact, Normal speech, Other (Grossly intact) - Psych Psych: Normal mood, Normal affect Results - Vitals Vitals: Vital Signs - 24 hr 03/31/22 03/31/22 03/31/22 18:55 21:28 22:03 Temperature 36.9 C 37.1 C Heart Rate 70 92 73 Respiratory 16 14 16 Rate Blood Pressure 182/63 H 153/60 H 157/73 H O2 Saturation 100 100 99 Oxygen O2 Source [Without Activity] Room air O2 Source Room air - Labs Labs: Laboratory Tests 03/31/22 03/31/22 19:11 19:11 WBC 12.1 H RBC 4.31 Hgb 12.6 Hct 38.3 MCV 88.9 MCH 29.2 MCHC 32.9 RDW 13.2 Plt Count 228 MPV 10.0 Neut # (Auto) 9.3 H Lymph # (Auto) 1.9 [place] # (Auto) 0.7 Eos # (Auto) 0.1 Baso # (Auto) 0.1 Absolute Nucleated RBC 0.00 Nucleated RBC % 0.0 Sodium 134 L Potassium 3.6 Chloride 102 Carbon Dioxide 21 Anion Gap 11.0 BUN 15 Creatinine 0.5 Estimated GFR (MDRD) 118 Glucose 95 Calcium 8.8 Magnesium 1.9 Total Bilirubin 0.5 AST 36 ALT 33 Alkaline Phosphatase 50 Total Protein 7.4 Albumin 3.9 Globulin 3.5 Albumin/Globulin Ratio 1.1 Lipase 29 PD Medical Decision Making - ED course Complexity details: reviewed results, re-evaluated patient, considered differential, d/w patient ED course: The patient overall was fairly well-appearing, but given her elderly age and the multiple episodes of diarrhea, I felt she should have laboratory studies done and be treated with some IV fluids. Patient was given a liter of 0.9 normal saline. I did order a CBC and an ER abdominal panel and reviewed both. The patient was found to have a slightly elevated white blood cell count of 12.1 and a slightly decreased sodium at 134. The remainder of both panels was completely normal. The patient was feeling better on reevaluation. I felt that she was stable for discharge home. We have discussed symptomatic management at home, and expected timeline of illness, and the usual indications for return. Departure - Departure Disposition: 01 Home, Self Care Clinical Impression: Enteritis Diarrhea Qualifiers: Diarrhea type: presumed infectious Qualified Code(s): R19.7 - Diarrhea, unspecified Condition: Stable Instructions: ED Diarrhea Viral, ED Diet Vomiting Diarrhea Comments: Your labs overall look very good. You have been hydrated with a full liter of saline solution in the emergency department. You should continue to try to drink 8 to 10 cups of water or electrolyte solution while you are sick. If you are feeling up to eating, you may do so, but try to avoid high-fiber foods, even though these are the most helpful, until your stools have started to solidify. In general, it is best to start with simple starches like Ramen noodles, saltine crackers, or white rice. You may take Imodium if he would like. The diarrhea is generally expected to last anywhere from a couple of days to a week. For further concerns, you may follow-up with your primary care physician. Discharge Date/Time: 03/31/22 22:08
[2022-03-31 22:21] VITALS: BP 157/73
== END 2022-03-31 22:08 | disposition home or self-care (01) ==
LOC: EDUNIT# → ED 18:50
DX: K52.9 Noninfective gastroenteritis and colitis, unspecified (principal); I10 Essential (primary) hypertension
CPT/HCPCS: 36415; 80053; 83690; 83735; 85025; 99283

== ENCOUNTER 2022-04-14 16:42 | Outpatient (CLI) | payer MEDICARE, OTHER | END 2022-04-14 23:59 | disposition critical access hospital (66) | LOC: EMS 16:42 | DX: K59.00 Constipation, unspecified (principal) | CPT/HCPCS: A0425; A0429 ==

== ENCOUNTER 2022-04-14 17:31 | Emergency (ER) | payer MEDICARE, OTHER ==
--- NOTE | 2022-04-14 17:41 | ED Physician Documentation ---
History of Present Illness - Stated complaint Stated Complaint: CONSTIPATION - History obtained from History obtained from: Patient, EMS - Additonal information Additional information: For unclear reasons she has not been able to have a bowel movement in 2 weeks. She feels like she has a fecal impaction. She tried milk of magnesia but she feels like that just went to around the ball of stool in her rectum. 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 - Present Medications Home Medications: Ambulatory Orders Medication Instructions Recorded Confirmed amLODIPine [Norvasc] 5 mg PO DAILY 03/29/18 03/31/22 Losartan Potassium 25 mg PO DAILY 07/17/20 03/31/22 Aspirin Chewable [[facility] [place] 81 mg PO DAILY tab 03/26/22 03/31/22 Aspirin] Atorvastatin [Lipitor] 80 mg PO QPM #30 tab 03/26/22 03/31/22 Clopidogrel [Plavix] 75 mg PO DAILY #21 tab 03/26/22 03/31/22 polyethylene glycoL 3350 [Miralax] 17 gm PO DAILY PRN #1 each 04/14/22 - Allergies Allergies/Adverse Reactions: Allergies Allergy/AdvReac Type Severity Reaction Status Date / Time codeine Allergy Hallucinati Verified 03/25/22 16:57 ons morphine Allergy Hallucinati Verified 03/25/22 16:57 ons - Social History Does the pt smoke?: No Smoking Status: Never smoker Does the pt drink ETOH?: No Does the pt have substance abuse?: No - Immunizations Immunizations are current?: Yes - POLST Patient has POLST: Yes POLST Status: DNR (Her PCP, Dr. Jacobs has the POLST form) PD ED PE NORMAL - Vitals Vital signs reviewed: Yes - General General: Alert and oriented X 3, No acute distress - Abdomen Abdomen: Normal bowel sounds, Soft, Non tender - Rectal Rectal: Other (Exam done with Annamarie LAIRD present and chaperoning. Some small balls of stool but mostly an empty rectal vault. Enema placed during exam.) - Derm Derm: Normal color, Warm and dry - Extremities Extremities: No edema, No calf tenderness / cord - Neuro Neuro: Alert and oriented X 3, Normal speech Results - Vitals Vitals: Vital Signs - 24 hr 04/14/22 04/14/22 04/14/22 17:49 18:21 19:00 Temperature 36.3 C L Heart Rate 67 66 84 Respiratory 18 16 17 Rate Blood Pressure 125/79 137/61 H 127/54 L O2 Saturation 100 100 100 04/14/22 20:03 Temperature Heart Rate 73 Respiratory 18 Rate Blood Pressure 130/61 O2 Saturation 97 Oxygen O2 Source [] Room air O2 Source Room air - Labs Labs: Laboratory Tests 04/14/22 04/14/22 18:16 18:16 WBC 9.3 RBC 4.34 Hgb 12.7 Hct 38.7 MCV 89.2 MCH 29.3 MCHC 32.8 RDW 13.3 Plt Count 238 MPV 9.9 Neut # (Auto) 6.1 Lymph # (Auto) 2.4 [place] # (Auto) 0.6 Eos # (Auto) 0.1 Baso # (Auto) 0.0 Absolute Nucleated RBC 0.00 Nucleated RBC % 0.0 Sodium 134 L Potassium 3.9 Chloride 98 L Carbon Dioxide 23 Anion Gap 13.0 BUN 10 Creatinine 0.6 Estimated GFR (MDRD) 95 Glucose 99 Calcium 9.2 Total Bilirubin 0.6 AST 24 ALT 25 Alkaline Phosphatase 58 Total Protein 7.4 Albumin 3.9 Globulin 3.5 Albumin/Globulin Ratio 1.1 Lipase 26 - Rads (name of study) CT abdomen and pelvis shows diverticulosis and a small amount of stool and a ventral hernia Radiology: Final report received, EMP read indepedently PD Medical Decision Making - ED course Complexity details: reviewed results (CBC - nl, CMP - nl.) ED course: 82-year-old woman presents with constipation, presume fecal impaction based on above history That said on examination of the rectum there was no fecal i mpaction. An enema was placed during exam which did not result in much output. As such the original diagnosis was in question and labs and a CT were done. The CT demonstrated sort of diffuse constipation as well as a focal impaction or obstruction. Further history, she took milk of magnesia a week ago but then had diarrhea. So she was "gun shy" to take any more laxatives. I discussed with her that I think starting MiraLAX would be appropriate because it is a little gentler and can be titrated to effect without causing another blowout. Departure - Departure Disposition: Home, Self Care Clinical Impression: Constipation Qualifiers: Constipation type: slow transit constipation Qualified Code(s): K59.01 - Slow transit constipation Abdominal pain Qualifiers: Abdominal location: generalized Qualified Code(s): R10.84 - Generalized abdominal pain Condition: Good Record reviewed to determine appropriate education?: Yes Instructions: ED Constipation Prescriptions: polyethylene glycoL 3350 [Miralax] 17 gm PO DAILY PRN #1 each PRN Reason: Constipation Comments: You were seen today for constipation confirmed on the CAT scan. There is no obstruction or impaction. Given your previous "blowout" with milk of magnesia we are starting a laxative that is a little more gentle, MiraLAX. The nice thing about that as it can be taken multiple times a day if you do not have any output. Return if worse. Follow-up with your primary care physician, next available appointment.
[2022-04-14] MEDS ORDERED: SODIUM CHLORIDE 0.9% 1,000 ML IV STA (18:08)
[2022-04-14] MEDS ORDERED: iohexoL-300 100 ML VIAL ONE (18:13)
[2022-04-14 18:20] LABS: BASOPHILS % (AUTO) 0.3 %; EOSINOPHILS # (AUTO) 0.1 10^3/uL (0.0-0.7); EOSINOPHILS % (AUTO) 1.1 %; HCT - HEMATOCRIT 38.7 % (37.0-47.0); HGB - HEMOGLOBIN 12.7 g/dL (12.0-16.0); LYMPHOCYTES # (AUTO) 2.4 10^3/uL (1.5-3.5); LYMPHOCYTES % (AUTO) 25.8 %; MEAN CORPUSCULAR HEMOGLOBIN 29.3 pg (27.0-31.0); MEAN CORPUSCULAR HGB CONC 32.8 g/dL (32.0-36.0); MEAN CORPUSCULAR VOLUME 89.2 fL (81.0-99.0); MEAN PLATELET VOLUME 9.9 fL (7.9-10.8); MONOCYTES # (AUTO) 0.6 10^3/uL (0.0-1.0); MONOCYTES % (AUTO) 6.2 %; NEUTROPHILS # (AUTO) 6.1 10^3/uL (1.5-6.6); NEUTROPHILS % (AUTO) 66.4 %; PLT - PLATELET COUNT 238 10^3/uL (130-450); RED BLOOD COUNT 4.34 10^6/uL (4.20-5.40); RED CELL DISTRIBUTION WIDTH 13.3 % (12.0-15.0); WHITE BLOOD COUNT 9.3 x10^3/uL (4.8-10.8)
[2022-04-14 18:54] LABS: ALBUMIN 3.9 g/dL (3.2-5.5); ALBUMIN/GLOBULIN RATIO 1.1 (1.0-2.2); BILIRUBIN,TOTAL 0.6 mg/dL (0.2-1.0); CALCIUM 9.2 mg/dL (8.5-10.3); CREATININE 0.6 mg/dL (0.4-1.0); POTASSIUM 3.9 mmol/L (3.5-5.0); TOTAL PROTEIN 7.4 g/dL (6.7-8.2)
[2022-04-14] MEDS ORDERED: iohexoL-300 100 ML VIAL IVP ONE (19:13)
--- NOTE | 2022-04-14 19:59 | CT Report ---
PROCEDURE: ABDOMEN/PELVIS W INDICATIONS: IV only, low abd pain; constipation, CONTRAST: 100ml omni 300 n TECHNIQUE: After the administration of IV contrast, 5 mm thick sections acquired from the diaphragms to the symp hysis. 5 mm thick coronal and sagittal reformats were acquired. For radiation dose reduction, the f ollowing was used: automated exposure control, adjustment of mA and/or kV according to patient size. COMPARISON: Ultrasound abdomen, 06/02/2015. FINDINGS: Image quality: Excellent. ABDOMEN: Lung bases: Lung bases are clear. Heart size is normal. Moderate coronary artery calcification. Sm all hiatal hernia. Solid organs: Liver and spleen are normal in size and enhancement. Gallbladder is absent Biliary s ystem is non dilated. Pancreas enhances normally. No adrenal nodules. Kidneys demonstrate normal s ize and enhancement, without hydronephrosis. Peritoneum and bowel: Bowel loops demonstrate normal wall thickness and caliber. There is a large a mount of stool in colon. Mild sigmoid diverticulosis. No acute diverticulitis. No free fluid or air. Nodes and vessels: No retroperitoneal or mesenteric adenopathy by size criteria. Aorta and inferior vena cava are normal in size. Severe atherosclerotic calcifications are present. Miscellaneous: There is a small periumbilical ventral hernia containing a short segment of intestine and omental. Ventral hernias. As a 1.5 cm indeterminate subcutaneous soft tissue nodule in the upper right anterior abdominal wall. PELVIS: Genitourinary: Bladder wall thickness is normal. Miscellaneous: No inguinal hernias or adenopathy. Bones: No suspicious bony lesions. No vertebral body compression fractures. 1 anterolisthesis of L 5 on S1. [id number] degenerative disc and facet disease in lumbar spine. IMPRESSION: 1. No acute abnormalities in abdomen or pelvis. 2. Diverticulosis without acute diverticulitis. 3. A large amount of stool in colon. 4. Small periumbilical ventral hernia containing short segment of small bowel and omental fat. Reviewed by: Arthur Christianson MD on 04/14/2022 7:58 PM PST Approved by: Arthur Christianson MD on 04/14/2022 7:58 PM PST Station ID: [id number]
[2022-04-14 20:03] VITALS: BP 130/61
[2022-04-14] MEDS ORDERED: polyethylene glycoL 3350 17 GM PACKET PO STA (20:19)
== END 2022-04-14 20:52 | disposition home or self-care (01) ==
LOC: EDUNIT# → ED 17:31
DX: K59.01 Slow transit constipation (principal); I10 Essential (primary) hypertension
CPT/HCPCS: 36415; 74177; 80053; 83690; 85025; 99284; A9270; Q9967

== ENCOUNTER 2023-04-28 16:51 | Outpatient (CLI) | payer MEDICARE, OTHER | END 2023-04-28 23:59 | disposition short-term general hospital (02) | LOC: EMS 16:51 | DX: M79.89 Other specified soft tissue disorders (principal); L53.9 Erythematous condition, unspecified | CPT/HCPCS: A0425; A0429 ==